=== PATIENT | male | born 1935 | race Caucasian/White ===

== ENCOUNTER 2017-08-04 02:30 | Observation (INO) | payer MEDICARE, BC ==
--- NOTE | 2017-08-04 02:48 | EDM.PDOC ---
ED HPI GENERAL MEDICAL PROBLEM - General Chief Complaint: General Stated Complaint: right arm numb, headache Time Seen by Provider: 08/04/17 02:25 Source of Information: Reports: Patient History Limitations: Reports: No Limitations - History of Present Illness INITIAL COMMENTS - FREE TEXT/NARRATIVE: Paramjit is an 81 yo male who presents to the ER via [facility] with concerns of right arm numbness and a headache. He states he went to bed feeling well around 10 this evening. He was woke up to having a headache, difficulty focusing with his right eye and the numbness in his right arm. Initially tried getting out of bed but felt he wasn't able to walk and would be unsteady on his feet. After being able to ambulate he took 2 aspirin. Admits the numbness in his right arm has subsided and his headache on arrival is very dull. Was concerned of having a stroke. Currently has a cardiac event monitor on for known history of bradycardia. He currently takes Methyldopa for high blood pressure, which was started in [place] with his primary care provider. Otherwise, denies any other medications. He denies any prior history of stroke or TIA's. Past medical history is otherwise grossly benign. Onset: Today, Sudden Duration: Improving, Resolved Prior to Arrival Location: Reports: Head, Upper Extremity, Right Associated Symptoms: Reports: Headaches. 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 - Related Data Allergies Allergy/AdvReac Type Severity Reaction Status Date / Time ciprofloxacin [From Cipro] Allergy Cannot Verified 08/04/17 02:28 Remember Home Meds: Home Meds Methyldopa 1 tab PO BID 08/04/17 [History] Past Medical History Cardiovascular History: Reports: Hypertension, Other (See Below) (bradycardia) Respiratory History: Reports: None Gastrointestinal History: Reports: None Genitourinary History: Reports: None Neurological History: Reports: None Psychiatric History: Reports: None Oncologic (Cancer) History: Reports: Prostate - Past Surgical History HEENT Surgical History: Reports: None Cardiovascular Surgical History: Reports: None Respiratory Surgical History: Reports: None GI Surgical History: Reports: None Male Surgical History: Reports: TURP-Transurethral Resection of Prostate Endocrine Surgical History: Reports: None Neurological Surgical History: Reports: None Musculoskeletal Surgical History: Reports: Shoulder Surgery Oncologic Surgical History: Reports: None Social & Family History - Tobacco Use Smoking Status *Q: Never Smoker - Caffeine Use Caffeine Use: Reports: Coffee - Alcohol Use Alcohol Use History: No - Living Situation & Occupation Living situation: Reports: , Alone Occupation: Retired ED ROS GENERAL - Review of Systems Review Of Systems: See Below Constitutional: Denies: Fever, Chills, Weakness HEENT: Reports: Vision Change (initial difficulty focusing with right eye, resolved ) Respiratory: Reports: No Symptoms Cardiovascular: Reports: Blood Pressure Problem. Denies: Chest Pain, Palpitations, Syncope GI/Abdominal: Reports: No Symptoms : Reports: No Symptoms Musculoskeletal: Reports: No Symptoms Neurological: Reports: Numbness (right upper extremity, resolved prior to arrival), Difficulty Walking (at onset, resolved prior to arrival). Denies: Syncope, Trouble Speaking, Change in Speech Psychiatric: Reports: No Symptoms ED EXAM, GENERAL - Physical Exam Exam: See Below Exam Limited By: No Limitations General Appearance: Alert, WD/WN, No Apparent Distress Eye Exam: Bilateral Eye: EOMI, Normal Inspection, PERRL Ears: Normal External Exam, Normal Canal, Hearing Grossly Normal, Normal TMs Nose: Normal Inspection, Normal Mucosa, No Blood Throat/Mouth: Normal Inspection, Normal Lips, Normal Gums, Normal Oropharynx, Normal Voice, No Airway Compromise Head: Atraumatic, Normocephalic Neck: Normal Inspection, Supple Respiratory/Chest: No Respiratory Distress, Lungs Clear, Normal Breath Sounds, No Accessory Muscle Use Cardiovascular: Normal Peripheral Pulses, No Edema, No Murmur, Bradycardia GI/Abdominal: Normal Bowel Sounds, Soft, Non-Tender, No Organomegaly, No Distention Extremities: Normal Inspection, Normal Range of Motion, Normal Capillary Refill Neurological: Alert, Oriented, CN II-XII Intact, Normal Cognition, No Motor/ Sensory Deficits Psychiatric: Normal Affect, Normal Mood Skin Exam: Warm, Dry, Intact, Normal Color, No Rash EKG INTERPRETATION EKG Date: 08/04/17 Rhythm: Other (Sinus bradycardia with 1st degree AV block) Rate (Beats/Min): 47 Comparison: No Change Course - Vital Signs Last Recorded V/S: Last Vital Signs Temp 96.3 F 08/04/17 02:30 Pulse 50 L 08/04/17 02:30 Resp 16 08/04/17 02:30 BP 144/53 H 08/04/17 02:30 Pulse Ox 95 08/04/17 02:30 - Orders/Labs/Meds Orders: Active Orders 24 hr Category Date Time Status Chest 2V [CR] Stat Exams 08/04/17 02:20 Ordered Head wo Cont [CT] Stat Exams 08/04/17 02:20 Ordered Labs: Laboratory Tests 08/04/17 08/04/17 08/04/17 Range/Units 02:45 02:45 02:45 WBC 5.5 (5.0-10.0) 10^3/uL RBC 3.89 L (4.50-6.00) 10^6/uL Hgb 11.9 L (14.0-18.0) g/dL Hct 36.9 L (40.0-54.0) % MCV 94.9 H (82.0-94.0) fL MCH 30.6 (27.0-32.0) pg MCHC 32.2 L (33.0-38.0) g/dL RDW Coeff of Carmen 12.9 (11.0-15.0) % Plt Count 122 L (150-400) 10^3/uL Neut % (Auto) 77.9 (35-85) % Lymph % (Auto) 13.7 (10-55) % Arroyo % (Auto) 6.9 (0-16) % Eos % (Auto) 1.3 (0-5) % Baso % (Auto) 0.2 (0-3) % Neut # (Auto) 4.27 (1.80-7.00) 10^3/uL Lymph # (Auto) 0.75 L (1.00-4.80) 10^3/uL Arroyo # (Auto) 0.38 (0.00-0.80) 10^3/uL Eos # (Auto) 0.07 (0.00-0.45) 10^3/uL Baso # (Auto) 0.01 10^3/uL PT 10.5 (9.7-12.3) SEC INR 1.01 (0.92-1.18) APTT 27.4 (23.2-32.3) SEC Sodium 142 (136-145) mEq/L Potassium 4.1 (3.5-5.0) mEq/L Chloride 107 H (98-106) mEq/L Carbon Dioxide 24 (21-32) mmol/L BUN 22 H (7-18) mg/dL Creatinine 1.3 (0.7-1.3) mg/dL Est Cr Clr Drug Dosing 40.90 mL/min Estimated GFR (MDRD) 53 L (>=60) mL/min Glucose 119 H (75-99) mg/dL Calcium 8.5 (8.4-10.1) mg/dL Lactate Dehydrogenase 172 (100-190) U/L Creatine Kinase 158 (35-232) U/L Troponin I < 0.017 (0.00-0.06) ng/mL - Re-Assessments/Exams Free Text/Narrative Re-Assessment/Exam: 08/04/17 02:55 Upon arrival, Paramjit was asymptomatic. He had no deficits noted. Stroke scale screening was a score of 0. Departure - Departure Time of Disposition: 03:19 Disposition: Refer to Observation Clinical Impression: TIA (transient ischemic attack) Qualifiers: Transient cerebral ischemia type: unspecified Qualified Code(s): G45.9 - Transient cerebral ischemic attack, unspecified - Discharge Information Forms: ED Department Discharge - Problem List & Annotations (1) TIA (transient ischemic attack) SNOMED Code(s): 283583291 Code(s): G45.9 - TRANSIENT CEREBRAL ISCHEMIC ATTACK, UNSPECIFIED Status: Acute Current Visit: Yes Qualifiers: Transient cerebral ischemia type: unspecified Qualified Code(s): G45.9 - Transient cerebral ischemic attack, unspecified - Problem List Review Problem List Initiated/Reviewed/Updated: Yes - My Orders Last 24 Hours: My Active Orders 08/04/17 02:20 Chest 2V [CR] Stat Head wo Cont [CT] Stat - Assessment/Plan Admission H&P: Please use this note as an admission H&P Last 24 Hours: My Active Orders 08/04/17 02:20 Chest 2V [CR] Stat Head wo Cont [CT] Stat Plan: Discussed findings with Paramjit and his son. Laboratory work was stable. CT of the brain showed no acute abnormalities pending radiology report. Chest x-ray stable. Will admit to Dr. Aguirre's services under observation. Carotid duplex, fasting lipid, urinalysis to be done in am. Paramjit and family are both in agreement.
[2017-08-04 03:07] LABS: CHLORIDE,CL 107 mEq/L (98-106); SODIUM,NA 142 mEq/L (136-145)
[2017-08-04] MEDS ORDERED: Acetaminophen 500 MG Tab PO ONE (03:20)
[2017-08-04] MEDS ORDERED: Sodium Chloride 0.9% 10 ML Syringe FLUSH PRN (04:00)
[2017-08-04] MEDS ORDERED: Docusate Sodium 100 MG Cap PO PRN (04:00)
[2017-08-04] MEDS ORDERED: Acetaminophen 325 MG Tab PO PRN (04:00)
[2017-08-04] MEDS: Enoxaparin 40 MG/0.4 ML Syringe SUBCUT SCH (04:37)
[2017-08-04] MEDS: Aspirin 81 MG Tab.Chew PO SCH (07:41)
[2017-08-04] MEDS ORDERED: Iopamidol 755 Mg/ML 100 ML Bottle IVPUSH ONE (08:33)
--- NOTE | 2017-08-04 10:01 | PN ---
DATE: 08/04/2017 S: Paramjit Song came in with the TIA last night. Apparently, his right upper extremity went numb 3 times. O: GENERAL: A little bit of a garbled speech. NECK: Supple. CHEST: Clear. CARDIAC: Regular grade 2 murmur over the aortic area. NEUROLOGIC: Stable and then a little bit of expressive aphasia. P: Echo, CTA head and neck and I will go from there. CAT scan of the head looks okay MOIRA/ROBERT /[id number]
[2017-08-05] MEDS: Enoxaparin 40 MG/0.4 ML Syringe SUBCUT SCH (04:07)
[2017-08-05] MEDS: Aspirin 81 MG Tab.Chew PO SCH (11:28)
--- NOTE | 2017-08-05 12:31 | PCM.DCSUM1 ---
Discharge Summary - Hospital Course HPI Initial Comments: Paramjit is a pleasant 81 year old male who was admitted to the hospital from the ED with questionable TIA. NIH 0 at time of presentation. He presented to the ED after waking up from sleep in the middle of the night with some dizziness and headache. He also reported that his right arm was also numb. He reported he tried to get out of bed but was too weak and dizzy to do so, so he called EMS to be brought in. Upon arrival to the ED, he was asymptomatic. Head CT was negative. Patient had no neurologic deficits throughout hospital stay. Dr. Aguirre did opt to proceed with CTA of head and neck. 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 Patient has been asymptomatic. No neurological issues. CTA of the neck normal. Patient has been recently doctoring for syncopal episodes. He recently had Holter monitor on which showed predominately NSR with intermittent 1st degree AV block. Bradycardia was present for 44% of the tracing, with a minimum heart rate of 34. Diary entries coincided with sinus, sinus bradycardia, or sinus with delay (1.5 seconds). EKG on arrival to ED did show sinus bradycardia with 1st degree AV block. Patient was referred to cardiology, who then recommended a 30-day event monitor until appointment date was set. Patient currently has 30- day event monitor on. Fax was received from reading tag press operator recommended patient see cardiology given bradycardia, pauses and patients symptoms. Patient was currently waiting for appointment with cardiology. Final event monitor read is not available, but they did report his HR got as low as 29 and patient was very symptomatic. Patient also recently had a transthoracic echocardiogram. Echo reveals low normal left ventricular systolic function, EF of 50%, mild aortic regurgitation, normal right ventricular systolic function, and mild tricuspid regurgitation. Throughout hospital stay, patient's HR at night has been low 30's. During the day, he has been running in the 50's. He has not had any syncopal episodes, but does report occasional episodes of lightheadedness that resolve after about 30 seconds. He reports these have been occurring for some time now, at least a couple times a week. VSS at time of discharge. Patient does have event monitor on. Consulted with [facility] re: patient's ongoing symptomatic bradycardia. Initially spoke with Dr. Turner (dot compliance specialist), who then recommended we admit to hospitalist. Discussed patient's case with Dr. Elizabeth ( hospitalist), who accepted patient for transfer. Patient will be discharged and transferred via EMS to [facility]. Patient will be admitted to room 662. This was discussed with both patient and patient's son, who are agreeable to transfer. Risks and benefits of transfer were discussed with patient. Risks of transfer include worsening of condition, , and MVA enroute. Benefits of transfer include higher level of care and cardiology, neurology, and electrophysiology consultation. Risks of nontransfer include worsening of condition, , and nonspecialized care or intervention. Benefits of nontransfer include familiar environment and close proximity to home. Patient voiced understanding of risks and benefits and was agreeable with transfer via BLS. - Discharge Data Discharge Date: 08/05/17 Discharge Disposition: DC/Tfer to [facility] 02 Condition: Good - Discharge Diagnosis/Problem(s) (1) Hypertension SNOMED Code(s): 70051577 ICD Code: I10 - ESSENTIAL (PRIMARY) HYPERTENSION Status: Acute Current Visit: Yes Qualifiers: Hypertension type: essential hypertension Qualified Code(s): I10 - Essential (primary) hypertension (2) Symptomatic sinus bradycardia SNOMED Code(s): 828559280 ICD Code: R00.1 - BRADYCARDIA, UNSPECIFIED Status: Acute Priority: High Current Visit: Yes (3) TIA (transient ischemic attack) SNOMED Code(s): 793497621 ICD Code: G45.9 - TRANSIENT CEREBRAL ISCHEMIC ATTACK, UNSPECIFIED Status: Acute Current Visit: Yes Problem Details: 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 Qualifiers: Transient cerebral ischemia type: unspecified Qualified Code(s): G45.9 - Transient cerebral ischemic attack, unspecified - Patient Instructions Diet: Heart Healthy Diet Activity: As Tolerated Driving: Do Not Drive - Discharge Plan Home Medications: Home Meds Methyldopa 1 tab PO BID 08/04/17 [History] Forms: ED Department Discharge Referrals: Provider,Unknown [Ordering Only Provider] - - Discharge Summary/Plan Comment DC Time >30 min.: Yes (60 minutes spent in care and coordination of d/c transfer ) - General Info Date of Service: 08/05/17 Admission Dx/Problem (Free Text: TIA Symptomatic Bradycardia Subjective Update: Patient reports he has been feeling well since admission. He has not had any neurologic changes. Has had some episodes of dizziness/lightheadedness when his pulse is low at night. Nursing reports pulse as low as 31 last night. BP has been stable. Patient has no other complaints. Functional Status: Reports: Pain Controlled, Tolerating Diet, Ambulating, Urinating. Denies: New Symptoms - Review of Systems General: Reports: No Symptoms. Denies: Fever, Weakness, Fatigue, Chills HEENT: Reports: No Symptoms Pulmonary: Reports: No Symptoms. Denies: Shortness of Breath, Cough, Sputum, Wheezing Cardiovascular: Reports: Lightheadedness. Denies: Chest Pain, Palpitations, Dyspnea on Exertion Gastrointestinal: Reports: No Symptoms. Denies: Abdominal Pain, Diarrhea, Nausea, Vomiting Genitourinary: Reports: No Symptoms Musculoskeletal: Reports: No Symptoms Skin: Reports: No Symptoms. Denies: Cyanosis, Diaphoresis Neurological: Reports: Dizziness. Denies: Confusion, Headache, Numbness, Paresthesia, Pre-Existing Deficit, Seizure, Syncope, Tingling, Tremors, Trouble Speaking, Difficulty Walking, Weakness, Change in Speech, Gait Disturbance Psychiatric: Reports: No Symptoms - Patient Data Vitals - Most Recent: Last Vital Signs Temp 97.3 F 08/05/17 12:00 Pulse 76 08/05/17 12:00 Resp 19 08/05/17 12:00 BP 129/50 L 08/05/17 12:00 Pulse Ox 96 08/05/17 12:00 Weight - Most Recent: 196 lb 12.8 oz Med Orders - Current: Current Medications Acetaminophen (Tylenol) 650 mg PO Q4H PRN PRN Reason: Pain (Mild 1-3)/fever Aspirin (Aspirin) 81 mg PO WITHBREAKFAST [facility] Last Admin: 08/05/17 11:28 Dose: Not Given Docusate Sodium (Colace) 100 mg PO BID PRN PRN Reason: Constipation Enoxaparin Sodium (Lovenox) 40 mg SUBCUT Q24H [facility] Last Admin: 08/05/17 04:07 Dose: 40 mg Methyldopa (Methyldopa) 500 mg PO BID [facility] Last Admin: 08/05/17 07:15 Dose: 500 mg Sodium Chloride (Saline Flush) 10 ml FLUSH ASDIRECTED PRN PRN Reason: Keep Vein Open Discontinued Medications Acetaminophen (Tylenol Extra Strength) 1,000 mg PO ONETIME ONE Stop: 08/04/17 03:21 Last Admin: 08/04/17 03:25 Dose: 1,000 mg Iopamidol (Isovue-370 (76%)) 100 ml IVPUSH ONETIME ONE Stop: 08/04/17 08:34 Last Admin: 08/04/17 11:06 Dose: 100 ml - Exam Quality Assessment: Reports: DVT Prophylaxis General: Reports: Alert, Oriented, No Acute Distress Neck: Reports: Supple Lungs: Reports: Clear to Auscultation, Normal Respiratory Effort Cardiovascular: Reports: Regular Rate, Regular Rhythm, Murmurs GI/Abdominal Exam: Normal Bowel Sounds, Soft, Non-Tender, No Organomegaly, No Distention, No Abnormal Bruit, No Mass, Pelvis Stable Back Exam: Reports: Normal Inspection, Full Range of Motion Extremities: Normal Inspection, Normal Range of Motion, Non-Tender, No Pedal Edema, Normal Capillary Refill Skin: Reports: Warm, Dry, Intact Neurological: Reports: No New Focal Deficit, Normal Gait, Normal Speech, Strength Equal Bilateral, Sensation Intact, Cranial Nerves Intact Psy/Mental Status: Reports: Alert, Normal Affect, Normal Mood
== END 2017-08-05 12:35 ==
LOC: CC.ED 02:30 → CC.MS 03:25 → UNDOADMOB 03:40 → CC.MS 03:40
PROVIDERS: ADMIT Physician Assistant Medical; ATTEND General Practice
DX: G45.9 Transient cerebral ischemic attack, unspecified (principal); I44.0 Atrioventricular block, first degree; I10 Essential (primary) hypertension; Z88.1 Allergy status to other antibiotic agents
CPT/HCPCS: 36415; 70450; 70496; 70498; 71046; 80048; 80061; 81001; 82550; 83615; 83735; 83880; 84443; 84484; 85025; 85610; 85651; 85730; 93005; 96372; 99285; A9270-GY; G0378; J1650; Q9967

== ENCOUNTER 2018-03-15 16:09 | Emergency (ER) | payer MEDICARE, BC ==
--- NOTE | 2018-03-15 16:39 | EDM.PDOC ---
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) - Related Data Allergies Allergy/AdvReac Type Severity Reaction Status Date / Time ciprofloxacin [From Cipro] Allergy Cannot Verified 03/15/18 16:14 Remember Home Meds: Home Meds Aspirin [Halfprin] 81 mg PO DAILY 03/15/18 [History] Carvedilol 3.125 mg PO BID 03/15/18 [History] Lisinopril 20 mg PO DAILY 03/15/18 [History] atorvaSTATin Calcium [Atorvastatin Calcium] 40 mg PO BEDTIME 03/15/18 [History] Past Medical History HEENT History: Reports: None Cardiovascular History: Reports: Hypertension, Pacemaker, Other (See Below) Respiratory History: Reports: None Gastrointestinal History: Reports: None Genitourinary History: Reports: None Other Genitourinary History: prostrate cancer Neurological History: Reports: None Psychiatric History: Reports: None Oncologic (Cancer) History: Reports: Prostate - Past Surgical History HEENT Surgical History: Reports: None Cardiovascular Surgical History: Reports: None Respiratory Surgical History: Reports: None GI Surgical History: Reports: None Male Surgical History: Reports: TURP-Transurethral Resection of Prostate Endocrine Surgical History: Reports: None Neurological Surgical History: Reports: None Musculoskeletal Surgical History: Reports: Shoulder Surgery Oncologic Surgical History: Reports: None Social & Family History - Family History Cardiac: Reports: Hypertension - Tobacco Use Smoking Status *Q: Never Smoker - Caffeine Use Caffeine Use: Reports: Coffee - Recreational Drug Use Recreational Drug Use: No - Living Situation & Occupation Living situation: Reports: , Alone Occupation: Retired ED ROS GENERAL - Review of Systems Review Of Systems: See Below Constitutional: Reports: No Symptoms HEENT: Reports: Other (swelling to nose with abrasions ) Respiratory: Reports: No Symptoms. Denies: Shortness of Breath Cardiovascular: Reports: No Symptoms. Denies: Chest Pain Endocrine: Reports: No Symptoms GI/Abdominal: Reports: No Symptoms. Denies: Abdominal Pain, Nausea, Vomiting : Reports: No Symptoms Musculoskeletal: Reports: No Symptoms. Denies: Neck Pain, Back Pain Skin: Reports: Other (abrasions to face) Neurological: Reports: Headache, Other (positive LOC) Psychiatric: Reports: No Symptoms ED EXAM, GENERAL - Physical Exam Exam: See Below Exam Limited By: No Limitations General Appearance: Alert, WD/WN, No Apparent Distress Eye Exam: Bilateral Eye: EOMI, PERRL Ears: Normal External Exam, Normal Canal, Hearing Grossly Normal, Normal TMs Ear Exam: Bilateral Ear: Auricle Normal, Canal Normal, TM normal Nose: Normal Mucosa, No Blood, Nasal Tenderness, Nasal Deformity, Nasal Swelling Throat/Mouth: Normal Inspection, Normal Lips, Normal Oropharynx, Normal Voice, No Airway Compromise Head: Normocephalic, Other (facial abrasions) Neck: Normal Inspection, Supple, Non-Tender, Full Range of Motion Respiratory/Chest: No Respiratory Distress, Lungs Clear, Normal Breath Sounds, No Accessory Muscle Use, Chest Non-Tender Cardiovascular: Normal Peripheral Pulses, Regular Rate, Rhythm, No Edema Peripheral Pulses: 2+: Radial (L), Radial (R) GI/Abdominal: Soft, Non-Tender, No Distention Back Exam: Normal Inspection, Full Range of Motion Extremities: Normal Inspection, Normal Range of Motion, Non-Tender, Normal Capillary Refill Neurological: Alert, Oriented, CN II-XII Intact, Normal Cognition, Normal Gait, No Motor/Sensory Deficits Psychiatric: Normal Affect, Normal Mood Skin Exam: Warm, Dry, Normal Color, No Rash, Other (abrasions to face). No: Intact Course - Vital Signs Last Recorded V/S: Last Vital Signs Temp 35.8 C 03/15/18 16:10 Pulse 71 03/15/18 16:10 Resp 16 03/15/18 16:10 BP 138/59 L 03/15/18 16:10 Pulse Ox 100 03/15/18 16:10 - Orders/Labs/Meds Orders: Active Orders 24 hr Category Date Time Status Cervical Spine wo Cont [CT] Stat Exams 03/15/18 16:34 Ordered Head wo Cont [CT] Stat Exams 03/15/18 16:34 Ordered Maxillofacial w/o CM [Max Facial Sinus wo Cont] [CT] Exams 03/15/18 16:34 Ordered Stat Meds: Medications Discontinued Medications Generic Name Dose Route Start Last Admin Trade Name Chidi PRN Reason Stop Dose Admin Neomycin/Polymyxin/Bacitracin 1 each 03/15/18 16:52 03/15/18 17:01 Triple Antibiotic Oint TOP 03/15/18 16:53 1 each ONETIME ONE Administration - Radiology Interpretation CT Results Date: 03/15/18 (ct head/neck/face have no acute pathology, see report for details) Departure - Departure Time of Disposition: 18:29 Disposition: Home, Self-Care 01 Condition: Good Clinical Impression: Fall, Closed head injury, Facial contusion - Discharge Information *PRESCRIPTION DRUG MONITORING PROGRAM REVIEWED*: Not Applicable *COPY OF PRESCRIPTION DRUG MONITORING REPORT IN PATIENT MILY: Not Applicable Instructions: Contusion, Gexm-th-[id number], Head Injury, Adult, [id number] Forms: ED Department Discharge Additional Instructions: rest increase fluids apply a thin coat of neosporin to your abrasions 3 x a day alternate tylenol and motrin as needed for pain return to the ED as needed - Problem List & Annotations (1) Closed head injury SNOMED Code(s): 056605489784 Code(s): S09.90XA - UNSPECIFIED INJURY OF HEAD, INITIAL ENCOUNTER Status: Acute Priority: Medium Current Visit: Yes Qualifiers: Encounter type: initial encounter Qualified Code(s): S09.90XA - Unspecified injury of head, initial encounter (2) Facial contusion SNOMED Code(s): 482524574 Code(s): S00.83XA - CONTUSION OF OTHER PART OF HEAD, INITIAL ENCOUNTER Status: Acute Priority: Medium Current Visit: Yes Qualifiers: Encounter type: initial encounter Qualified Code(s): S00.83XA - Contusion of other part of head, initial encounter (3) Fall SNOMED Code(s): 8362101, 365137437 Code(s): W19.XXXA - UNSPECIFIED FALL, INITIAL ENCOUNTER Status: Acute Priority: Medium Current Visit: Yes Qualifiers: Encounter type: initial encounter Qualified Code(s): W19.XXXA - Unspecified fall, initial encounter - Problem List Review Problem List Initiated/Reviewed/Updated: Yes - My Orders Last 24 Hours: My Active Orders 03/15/18 16:34 Cervical Spine wo Cont [CT] Stat Head wo Cont [CT] Stat Maxillofacial w/o CM [Max Facial Sinus wo Cont] [CT] Stat - Assessment/Plan Last 24 Hours: My Active Orders 03/15/18 16:34 Cervical Spine wo Cont [CT] Stat Head wo Cont [CT] Stat Maxillofacial w/o CM [Max Facial Sinus wo Cont] [CT] Stat Plan: will dc, f/u prn, see dc instructions
[2018-03-15] MEDS ORDERED: Bacitracin/Neomycin/Polymyxin B Oint 0.9 GM U/D Packet TOP ONE (16:52)
== END 2018-03-15 18:35 | disposition home or self-care (01) ==
LOC: CC.ED 16:09
DX: S09.90XA Unspecified injury of head, initial encounter (principal); S00.83XA Contusion of other part of head, initial encounter; I10 Essential (primary) hypertension; Z88.1 Allergy status to other antibiotic agents; W19.XXXA Unspecified fall, initial encounter
CPT/HCPCS: 70450; 70486; 72125; 99283; 99284

== ENCOUNTER 2018-11-05 18:26 | Emergency (ER) | payer MEDICARE, BC ==
--- NOTE | 2018-11-05 18:48 | EDM.PDOC ---
ED HPI GENERAL MEDICAL PROBLEM - General Chief Complaint: General Stated Complaint: "Pacemaker not working" Time Seen by Provider: 11/05/18 18:40 Source of Information: Reports: Patient History Limitations: Reports: No Limitations - History of Present Illness INITIAL COMMENTS - FREE TEXT/NARRATIVE: in with c/o dizziness off and on x several days, "I do not think my pacemaker is working", no sob, no palpitations or irregular heart beat, no ENT sx, no unusual neck/back pain or stiffness, no cough, no fever or chills. Onset: Gradual Duration: Day(s): Severity: Mild Improves with: Reports: None Worsens with: Reports: None Associated Symptoms: Reports: No Other Symptoms. 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) (none) - Related Data Allergies Allergy/AdvReac Type Severity Reaction Status Date / Time ciprofloxacin [From Cipro] Allergy Cannot Verified 11/05/18 18:26 Remember Home Meds: Home Meds Aspirin [Halfprin] 325 mg PO DAILY 03/15/18 [History] Carvedilol 3.125 mg PO BID 03/15/18 [History] Lisinopril 20 mg PO DAILY 03/15/18 [History] atorvaSTATin Calcium [Atorvastatin Calcium] 40 mg PO BEDTIME 03/15/18 [History] Past Medical History HEENT History: Reports: None Cardiovascular History: Reports: Hypertension, Pacemaker, Other (See Below) Respiratory History: Reports: None Gastrointestinal History: Reports: None Genitourinary History: Reports: None Other Genitourinary History: prostrate cancer Neurological History: Reports: None Psychiatric History: Reports: None Oncologic (Cancer) History: Reports: Prostate - Past Surgical History HEENT Surgical History: Reports: None Cardiovascular Surgical History: Reports: None Respiratory Surgical History: Reports: None GI Surgical History: Reports: None Male Surgical History: Reports: TURP-Transurethral Resection of Prostate Endocrine Surgical History: Reports: None Neurological Surgical History: Reports: None Musculoskeletal Surgical History: Reports: Shoulder Surgery Oncologic Surgical History: Reports: None Social & Family History - Family History Cardiac: Reports: Hypertension - Tobacco Use Smoking Status *Q: Never Smoker - Caffeine Use Caffeine Use: Reports: Coffee - Recreational Drug Use Recreational Drug Use: No - Living Situation & Occupation Living situation: Reports: , Alone Occupation: Retired ED ROS GENERAL - Review of Systems Review Of Systems: See Below Constitutional: Reports: No Symptoms. Denies: Fever, Chills, Weakness HEENT: Reports: No Symptoms Respiratory: Reports: No Symptoms. Denies: Shortness of Breath Cardiovascular: Reports: No Symptoms. Denies: Chest Pain Endocrine: Reports: No Symptoms GI/Abdominal: Reports: No Symptoms. Denies: Abdominal Pain, Nausea, Vomiting Musculoskeletal: Reports: No Symptoms. Denies: Neck Pain, Back Pain Skin: Reports: No Symptoms. Denies: Pallor, Diaphoresis, Bruising, Erythema Neurological: Reports: Dizziness. Denies: Confusion, Headache, Syncope, Trouble Speaking, Weakness, Change in Speech, Gait Disturbance Psychiatric: Reports: No Symptoms ED EXAM, GENERAL - Physical Exam Exam: See Below Exam Limited By: No Limitations General Appearance: Alert, WD/WN, No Apparent Distress Ears: Normal External Exam, Normal Canal, Normal TMs Ear Exam: Bilateral Ear: Auricle Normal, Canal Normal, TM normal Nose: Normal Inspection, Normal Mucosa Throat/Mouth: Normal Inspection, Normal Lips, Normal Oropharynx, Normal Voice, No Airway Compromise Head: Atraumatic, Normocephalic Neck: Normal Inspection, Supple, Non-Tender, Full Range of Motion Respiratory/Chest: No Respiratory Distress, Lungs Clear, Normal Breath Sounds, No Accessory Muscle Use, Chest Non-Tender Cardiovascular: Normal Peripheral Pulses, Regular Rate, Rhythm, No Edema, No Murmur, Systolic Murmur Peripheral Pulses: 2+: Radial (L), Radial (R) GI/Abdominal: Normal Bowel Sounds, Soft, Non-Tender, No Distention Back Exam: Normal Inspection, Full Range of Motion Extremities: Normal Inspection, Normal Range of Motion, Non-Tender, No Pedal Edema, Normal Capillary Refill Neurological: Alert, Oriented, Normal Cognition, Normal Gait, No Motor/Sensory Deficits Psychiatric: Normal Affect Skin Exam: Warm, Dry, Intact, Normal Color Course - Vital Signs Text/Narrative:: the pt was evaluated in the ED, cbc, and general chemistries are essi neg, has some chronic renal insufficiency and anemia, EKG shows a paced rhythm with a vent rate of 60, The pt advised the pacer is set on 60 and was told they may need to increase the rate. The pacer company is being called by the nurse to discuss the pts disposition. 1819 The pacer [employer] is going to have the tech call back, the pts son is going to get his pacer box so the pacer can be interrogated and increased if necessary. 2109 I spoke to the [employer] who evaluated the pacer through this morning and advised it is working normally and there has not been any problems. He advised that it would be best to have the pt f/u with the solar pv installer this week and discuss possibly making changes to the rate at that point. I did discuss this with the pt and he agrees with this disposition, I advised him to change positions slowly and call the solar pv installer on early wednesday am. Last Recorded V/S: Last Vital Signs Temp 35.8 C 11/05/18 20:42 Pulse 66 11/05/18 20:42 Resp 16 11/05/18 20:42 BP 144/82 H 11/05/18 20:42 Pulse Ox 100 11/05/18 20:42 - Orders/Labs/Meds Orders: Active Orders 24 hr Category Date Time Status Chest 2V [CR] Stat Exams 11/05/18 18:42 Taken Labs: Laboratory Tests 11/05/18 11/05/18 Range/Units 18:42 18:42 WBC 3.9 L (5.0-10.0) 10^3/uL RBC 3.43 L (4.50-6.00) 10^6/uL Hgb 10.6 L (14.0-18.0) g/dL Hct 32.8 L (40.0-54.0) % MCV 95.6 H (82.0-94.0) fL MCH 30.9 (27.0-32.0) pg MCHC 32.3 L (33.0-38.0) g/dL RDW Coeff of Carmen 13.0 (11.0-15.0) % Plt Count 124 L (150-400) 10^3/uL Neut % (Auto) 60.4 (35-85) % Lymph % (Auto) 27.9 (10-55) % Sabine % (Auto) 7.9 (0-16) % Eos % (Auto) 3.3 (0-5) % Baso % (Auto) 0.5 (0-3) % Neut # (Auto) 2.36 (1.80-7.00) 10^3/uL Lymph # (Auto) 1.09 (1.00-4.80) 10^3/uL Sabine # (Auto) 0.31 (0.00-0.80) 10^3/uL Eos # (Auto) 0.13 (0.00-0.45) 10^3/uL Baso # (Auto) 0.02 10^3/uL Sodium 142 (136-145) mEq/L Potassium 4.2 (3.5-5.0) mEq/L Chloride 108 H (98-106) mEq/L Carbon Dioxide 25 (21-32) mmol/L BUN 22 H (7-18) mg/dL Creatinine 1.5 H (0.7-1.3) mg/dL Est Cr Clr Drug Dosing 33.60 mL/min Estimated GFR (MDRD) 45 L (>=60) mL/min Glucose 140 H D (75-99) mg/dL Calcium 8.7 (8.4-10.1) mg/dL Total Bilirubin 0.4 (0.0-1.0) mg/dL AST 19 (15-37) U/L ALT 18 (12-78) U/L Alkaline Phosphatase 85 (46-116) U/L Troponin I < 0.017 (0.00-0.06) ng/mL Total Protein 6.7 (6.4-8.2) g/dL Albumin 3.5 (3.4-5.0) g/dL Departure - Departure Time of Disposition: 21:15 Disposition: Home, Self-Care 01 Condition: Good Clinical Impression: Dizziness - Discharge Information *PRESCRIPTION DRUG MONITORING PROGRAM REVIEWED*: Not Applicable *COPY OF PRESCRIPTION DRUG MONITORING REPORT IN PATIENT MILY: Not Applicable Instructions: Dizziness, [id number] Referrals: PCP,None [Primary Care Provider] - Forms: ED Department Discharge Additional Instructions: change positions slowly follow up with your solar pv installer this week, call early wednesday am for an appointment time for further evaluation and treatment return to the ED sooner if worse or problems - Problem List & Annotations (1) Dizziness SNOMED Code(s): 182537433, 620891316 Code(s): R42 - DIZZINESS AND GIDDINESS Status: Acute Priority: Medium Current Visit: Yes - Problem List Review Problem List Initiated/Reviewed/Updated: Yes - My Orders Last 24 Hours: My Active Orders 11/05/18 18:42 Chest 2V [CR] Stat - Assessment/Plan Last 24 Hours: My Active Orders 11/05/18 18:42 Chest 2V [CR] Stat Assessment:: as above
[2018-11-05 19:19] LABS: CHLORIDE,CL 108 mEq/L (98-106); SODIUM,NA 142 mEq/L (136-145)
== END 2018-11-05 21:30 | disposition home or self-care (01) ==
LOC: CC.ED 18:26
DX: R42 Dizziness and giddiness (principal); I10 Essential (primary) hypertension; Z85.46 Personal history of malignant neoplasm of prostate; Z88.1 Allergy status to other antibiotic agents; Z79.82 Long term (current) use of aspirin; Z79.899 Other long term (current) drug therapy
CPT/HCPCS: 36415; 71046; 80053; 84484; 85025; 93005; 99284; 99284-25

== ENCOUNTER 2019-01-26 12:10 | Emergency (ER) | payer OTHER, MEDICARE, BC ==
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
[2019-01-26] MEDS ORDERED: Diphtheria,Pertussis(Acell),Tetanus Vaccine 0.5 ML Syringe IM ONE (12:57)
== END 2019-01-26 13:40 | disposition home or self-care (01) ==
LOC: CC.ED 12:10
DX: M79.652 Pain in left thigh (principal); I10 Essential (primary) hypertension; Z88.1 Allergy status to other antibiotic agents; Z79.82 Long term (current) use of aspirin; Z79.899 Other long term (current) drug therapy; V64.5XXA Driver of heavy transport vehicle injured in collision with heavy transport vehicle or bus in traffic accident, initial encounter; Y92.410 Unspecified street and highway as the place of occurrence of the external cause
CPT/HCPCS: 36415; 71045; 72170; 80053; 82150; 85025; 85610; 90471; 90715; 93005; 99284-25

== ENCOUNTER 2019-09-25 08:31 | Observation (INO) | payer MEDICARE, BC ==
[2019-09-25 09:00] LABS: PTT,PARTIAL THROMBOPLSTIN TIME 23.6 SEC (23.2-32.3)
[2019-09-25 09:03] LABS: CHLORIDE,CL 109 mEq/L (98-106); SODIUM,NA 144 mEq/L (136-145)
[2019-09-25] MEDS ORDERED: Sodium Chloride 0.9% 1,000 ML IV SCH (09:45)
[2019-09-25] MEDS ORDERED: Acetaminophen 325 MG Tab PO PRN (11:08)
[2019-09-25] MEDS: amLODIPine 10 MG Tab PO SCH (11:44)
[2019-09-25] MEDS: Enoxaparin 40 MG/0.4 ML Syringe SUBCUT SCH (11:45)
--- NOTE | 2019-09-25 12:47 | EDM.PDOC ---
ED HPI GENERAL MEDICAL PROBLEM - General Chief Complaint: Neuro Symptoms/Deficits Stated Complaint: R side weakness Time Seen by Provider: 09/25/19 08:53 Source of Information: Reports: Patient History Limitations: Reports: No Limitations - History of Present Illness INITIAL COMMENTS - FREE TEXT/NARRATIVE: Juan is an 83 yo male who is brought into the ED via wheelchair, accompanied by his daugher. He states he woke up around 0200 hrs this morning, which is normal for him. Admits to feeling weak and couldn't get up and states his right arm felt weak that lasted about 3 hrs. He admits after that he was able to get up and symptoms seem to subside. Has history of mini strokes and daughter wanted him to get checked out. Denies any present weakness to his right arm. He adm its he had prior strokes before getting a pacemaker. 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 - Related Data Allergies Allergy/AdvReac Type Severity Reaction Status Date / Time ciprofloxacin [From Cipro] Allergy Cannot Verified 09/25/19 08:37 Remember Home Meds: Home Meds Lisinopril 20 mg PO DAILY 03/15/18 [History] atorvaSTATin Calcium [Atorvastatin Calcium] 40 mg PO BEDTIME 03/15/18 [History] carvediloL [Carvedilol] 3.125 mg PO BID 03/15/18 [History] Aspirin 325 mg PO DAILY 09/25/19 [History] Past Medical History HEENT History: Reports: None Cardiovascular History: Reports: Hypertension, Pacemaker, Other (See Below) Respiratory History: Reports: None Gastrointestinal History: Reports: None Genitourinary History: Reports: None Other Genitourinary History: prostrate cancer Neurological History: Reports: CVA Psychiatric History: Reports: None Oncologic (Cancer) History: Reports: Prostate - Past Surgical History HEENT Surgical History: Reports: None Cardiovascular Surgical History: Reports: Pacer Respiratory Surgical History: Reports: None GI Surgical History: Reports: None Male Surgical History: Reports: TURP-Transurethral Resection of Prostate Endocrine Surgical History: Reports: None Neurological Surgical History: Reports: None Musculoskeletal Surgical History: Reports: Shoulder Surgery Oncologic Surgical History: Reports: None Social & Family History - Family History Cardiac: Reports: Hypertension - Tobacco Use Smoking Status *Q: Never Smoker - Caffeine Use Caffeine Use: Reports: Coffee - Recreational Drug Use Recreational Drug Use: No - Living Situation & Occupation Living situation: Reports: , Alone Occupation: Retired ED ROS GENERAL - Review of Systems Review Of Systems: See Below Constitutional: Reports: Weakness (subsided). Denies: Fever, Chills HEENT: Reports: No Symptoms, Other Respiratory: Reports: No Symptoms Cardiovascular: Reports: No Symptoms. Denies: Chest Pain, Blood Pressure Problem, Dyspnea on Exertion, Lightheadedness, Palpitations GI/Abdominal: Reports: No Symptoms : Reports: No Symptoms Musculoskeletal: Reports: No Symptoms Skin: Reports: No Symptoms Neurological: Reports: Numbness, Paresthesia, Weakness. Denies: Confusion, Dizziness, Headache, Seizure, Syncope, Tingling, Trouble Speaking, Difficulty Walking Psychiatric: Reports: No Symptoms Hematologic/Lymphatic: Reports: No Symptoms ED EXAM, NEURO - Physical Exam Exam: See Below Exam Limited By: No Limitations General Appearance: Alert, WD/WN, No Apparent Distress Eye Exam: Bilateral Eye: EOMI, Normal Inspection, PERRL Ears: Normal External Exam, Normal Canal, Hearing Grossly Normal, Normal TMs Nose: Normal Inspection, Normal Mucosa, No Blood Throat/Mouth: Normal Inspection, Normal Lips, Normal Gums, Normal Oropharynx, No Airway Compromise Head Exam: Atraumatic, Normocephalic Neck: Normal Inspection, Supple Respiratory/Chest: No Respiratory Distress, Lungs Clear, Normal Breath Sounds, No Accessory Muscle Use Cardiovascular: Regular Rate, Rhythm, No Edema GI/Abdominal: Normal Bowel Sounds, Soft, Non-Tender, No Organomegaly, No Mass Neurological: Alert, Normal Mood/Affect, CN II-XII Intact, Normal Gait, No Motor/Sensory Deficits, Oriented x 3 Extremities: Normal Inspection, No Pedal Edema, Normal Capillary Refill Psychiatric: Normal Affect, Normal Mood Skin Exam: Warm, Dry, Intact, Normal Color, No Rash Course - Vital Signs Last Recorded V/S: Last Vital Signs Temp 98 F 09/25/19 12:19 Pulse 65 09/25/19 12:19 Resp 16 09/25/19 12:19 BP 153/61 H 09/25/19 12:19 Pulse Ox 100 09/25/19 12:19 - Orders/Labs/Meds Orders: Active Orders 24 hr Category Date Time Status Head wo Cont [CT] Routine Exams 09/25/19 Taken Sodium Chloride 0.9% [Normal Saline] 1,000 ml Med 09/25/19 09:45 Active IV ASDIRECTED Medication Orders Acetaminophen (Tylenol) 650 mg PO Q4H PRN PRN Reason: Pain (Mild 1-3)/fever Amlodipine Besylate (Norvasc) 5 mg PO DAILY [facility] Last Admin: 09/25/19 11:44 Dose: 5 mg Documented by: ARNIE Aspirin (Aspirin) 325 mg PO WITHBREAKFAST [facility] Atorvastatin Calcium (Lipitor) 40 mg PO BEDTIME [facility] Carvedilol (Coreg) 3.125 mg PO BID [facility] Enoxaparin Sodium (Lovenox) 40 mg SUBCUT DAILY [facility] Last Admin: 09/25/19 11:45 Dose: 40 mg Documented by: ARNIE Sodium Chloride (Normal Saline) 1,000 mls @ 150 mls/hr IV ASDIRECTED [facility] Last Admin: 09/25/19 09:48 Dose: 150 mls/hr Documented by: JIAN Lisinopril (Prinivil) 20 mg PO DAILY [facility] Labs: Laboratory Tests 09/25/19 09/25/19 09/25/19 Range/Units 08:42 08:42 08:42 WBC 5.2 (5.0-10.0) 10^3/uL RBC 3.67 L (4.50-6.00) 10^6/uL Hgb 11.3 L (14.0-18.0) g/dL Hct 35.3 L (40.0-54.0) % MCV 96.2 H (82.0-94.0) fL MCH 30.8 (27.0-32.0) pg MCHC 32.0 L (33.0-38.0) g/dL RDW Coeff of Carmen 12.7 (11.0-15.0) % Plt Count 118 L (150-400) 10^3/uL Neut % (Auto) 76.8 (35-85) % Lymph % (Auto) 14.9 (10-55) % [place] % (Auto) 5.4 (0-16) % Eos % (Auto) 2.7 (0-5) % Baso % (Auto) 0.2 (0-3) % Neut # (Auto) 3.98 (1.80-7.00) 10^3/uL Lymph # (Auto) 0.77 L (1.00-4.80) 10^3/uL Henderson # (Auto) 0.28 (0.00-0.80) 10^3/uL Eos # (Auto) 0.14 (0.00-0.45) 10^3/uL Baso # (Auto) 0.01 10^3/uL PT 10.9 (9.7-12.3) SEC INR 1.08 (0.92-1.18) APTT 23.6 (23.2-32.3) SEC Sodium 144 (136-145) mEq/L Potassium 4.0 (3.5-5.0) mEq/L Chloride 109 H (98-106) mEq/L Carbon Dioxide 26 (21-32) mmol/L BUN 23 H (7-18) mg/dL Creatinine 1.3 (0.7-1.3) mg/dL Est Cr Clr Drug Dosing TNP Estimated GFR (MDRD) 53 L (>=60) mL/min Glucose 107 H (75-99) mg/dL Calcium 8.4 (8.4-10.1) mg/dL Creatine Kinase 137 (35-232) U/L Troponin I < 0.017 (0.00-0.06) ng/mL Urine Color (YELLOW) Urine Appearance (CLEAR) Urine pH (4.5-8.0) Ur Specific [place]lass (1.003-1.020) Urine Protein (NEGATIVE) mg/dL Urine Glucose (UA) (NEGATIVE) mg/dL Urine Ketones (NEGATIVE) mg/dL Urine Occult Blood (NEGATIVE) Urine Nitrite (NEGATIVE) Urine Bilirubin (NEGATIVE) Urine Urobilinogen (0.2-1.0) EU/dL Ur Leukocyte Esterase (NEGATIVE) 09/25/19 Range/Units 08:42 WBC (5.0-10.0) 10^3/uL RBC (4.50-6.00) 10^6/uL Hgb (14.0-18.0) g/dL Hct (40.0-54.0) % MCV (82.0-94.0) fL MCH (27.0-32.0) pg MCHC (33.0-38.0) g/dL RDW Coeff of Carmen (11.0-15.0) % Plt Count (150-400) 10^3/uL Neut % (Auto) (35-85) % Lymph % (Auto) (10-55) % Henderson % (Auto) (0-16) % Eos % (Auto) (0-5) % Baso % (Auto) (0-3) % Neut # (Auto) (1.80-7.00) 10^3/uL Lymph # (Auto) (1.00-4.80) 10^3/uL Henderson # (Auto) (0.00-0.80) 10^3/uL Eos # (Auto) (0.00-0.45) 10^3/uL Baso # (Auto) 10^3/uL PT (9.7-12.3) SEC INR (0.92-1.18) APTT (23.2-32.3) SEC Sodium (136-145) mEq/L Potassium (3.5-5.0) mEq/L Chloride (98-106) mEq/L Carbon Dioxide (21-32) mmol/L BUN (7-18) mg/dL Creatinine (0.7-1.3) mg/dL Est Cr Clr Drug Dosing Estimated GFR (MDRD) (>=60) mL/min Glucose (75-99) mg/dL Calcium (8.4-10.1) mg/dL Creatine Kinase (35-232) U/L Troponin I (0.00-0.06) ng/mL Urine Color Light yellow (YELLOW) Urine Appearance Clear (CLEAR) Urine pH 6.0 (4.5-8.0) Ur Specific Douglass <= 1.005 (1.003-1.020) Urine Protein Negative (NEGATIVE) mg/dL Urine Glucose (UA) Negative (NEGATIVE) mg/dL Urine Ketones Negative (NEGATIVE) mg/dL Urine Occult Blood Negative (NEGATIVE) Urine Nitrite Negative (NEGATIVE) Urine Bilirubin Negative (NEGATIVE) Urine Urobilinogen 0.2 (0.2-1.0) EU/dL Ur Leukocyte Esterase Negative (NEGATIVE) Meds: Medications Generic Name Dose Route Start Last Admin Trade Name Freq PRN Reason Stop Dose Admin Acetaminophen 650 mg 09/25/19 11:08 Tylenol PO Q4H PRN Pain (Mild 1-3)/fever Amlodipine Besylate 5 mg 09/25/19 10:30 09/25/19 11:44 Norvasc PO 5 mg DAILY [facility] Administration Aspirin 325 mg 07/07/20 08:00 Aspirin PO WITHBREAKFAST [facility] Atorvastatin Calcium 40 mg 09/25/19 20:00 Lipitor PO BEDTIME [facility] Carvedilol 3.125 mg 09/25/19 20:00 Coreg PO BID [facility] Enoxaparin Sodium 40 mg 09/25/19 11:08 09/25/19 11:45 Lovenox SUBCUT 40 mg DAILY [facility] Administration Sodium Chloride 1,000 mls @ 150 mls/hr 09/25/19 09:45 09/25/19 09:48 Normal Saline IV 150 mls/hr ASDIRECTED [facility] Administration Lisinopril 20 mg 09/26/19 08:00 Prinivil PO DAILY [facility] - Radiology Interpretation Free Text/Narrative:: CT head for any acute intracranial abnormalities. Subacute findings noted with concerns of prior remote infarction. Departure - Departure Time of Disposition: 12:49 Disposition: Refer to Observation Clinical Impression: TIA (transient ischemic attack) - Discharge Information Sepsis Event Note (ED) - Evaluation Sepsis Screening Result: No Definite Risk - Focused Exam Vital Signs: Vital Signs Temp Pulse Resp BP Pulse Ox 09/25/19 09:45 98 F 63 15 181/73 H 99 09/25/19 09:30 98 F 63 16 173/72 H 98 09/25/19 09:15 98 F 78 16 167/78 H 99 09/25/19 09:00 98 F 68 15 180/80 H 100 09/25/19 08:45 98.3 F 69 15 174/73 H 97 09/25/19 08:31 98.2 F 55 L 16 175/50 H 98 - Problem List & Annotations (1) Hypertension SNOMED Code(s): 17496953 Code(s): I10 - ESSENTIAL (PRIMARY) HYPERTENSION Status: Chronic Current Visit: No Qualifiers: Hypertension type: essential hypertension Qualified Code(s): I10 - Essential (primary) hypertension (2) TIA (transient ischemic attack) SNOMED Code(s): 597430896 Code(s): G45.9 - TRANSIENT CEREBRAL ISCHEMIC ATTACK, UNSPECIFIED Status: Acute Current Visit: Yes - My Orders Last 24 Hours: My Active Orders 09/25/19 Head wo Cont [CT] Routine 09/25/19 09:45 Sodium Chloride 0.9% [Normal Saline] 1,000 ml IV ASDIRECTED - Assessment/Plan Admission H&P: Please use this note as an admission H&P Last 24 Hours: My Active Orders 09/25/19 Head wo Cont [CT] Routine 09/25/19 09:45 Sodium Chloride 0.9% [Normal Saline] 1,000 ml IV ASDIRECTED Plan: Labs overall are stable. Will admit for observation. Echocardiogram and carotid duplex to be done. Will closely monitor with telemetry and neurochecks. Will initiate ASA 325mg daily. Dr. Felipe consulted with admission and is in agreement. Patient transferred to floor in satisfactory condition.
[2019-09-25] MEDS: Carvedilol 3.125 MG Tab PO SCH (19:38)
[2019-09-25] MEDS ORDERED: atorvaSTATin 20 MG Tab PO SCH (20:00)
[2019-09-26] MEDS: amLODIPine 10 MG Tab PO SCH (07:53)
[2019-09-26] MEDS: Carvedilol 3.125 MG Tab PO SCH (07:53)
[2019-09-26] MEDS: Enoxaparin 40 MG/0.4 ML Syringe SUBCUT SCH (07:54)
[2019-09-26] MEDS ORDERED: Lisinopril 20 MG Tab PO SCH (08:00)
[2019-09-26] MEDS ORDERED: Aspirin 325 MG Tab PO SCH (08:00)
--- NOTE | 2019-09-26 18:12 | PCM.DCSUM1 ---
Discharge Summary - Hospital Course Free Text/Narrative:: Patient presented to ER with concerns of 3 hour history of right arm weakness. Had awoke at 0200 like his usual but felt weak. States right arm was especially noticeable. He reports the symptoms lasted about 3 hours but then subsided. 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 Was not started on any new meds since the pacemaker for this except a daily aspirin. CT scan of his head in the ER was negative. Lab work stable. Admitted for neuro monitoring, obtain carotid ultrasound and echocardiogram. Diagnosis: Stroke: No Modified [place] Scale: No Symptoms at All Modified [place] Scale Score: 0 - Discharge Data Discharge Date: 09/26/19 Discharge Disposition: Home, Self-Care 01 Condition: Good - Referral to Home Health Primary Care Physician: PCP None - Discharge Diagnosis/Problem(s) (1) TIA (transient ischemic attack) SNOMED Code(s): 432633633 ICD Code: G45.9 - TRANSIENT CEREBRAL ISCHEMIC ATTACK, UNSPECIFIED Status: Acute Priority: High - Patient Summary/Data Complications: none Hospital Course: Patient doing well. Neuro checks have remained normal throughout stay. Up and ambulating without difficulty. Appetite is good. Carotid ultrasound and echo have been done, awaiting results. Discussion with patient and daughter held in regards to starting Plavix to prevent any further TIA/CVA. Opted to proceed with Plavix. Will follow up in clinic next week for all results. - Patient Instructions Diet: Usual Diet as Tolerated Activity: As Tolerated Other/Special Instructions: MRI of the brain on Wednesday - Discharge Plan *PRESCRIPTION DRUG MONITORING PROGRAM REVIEWED*: No *COPY OF PRESCRIPTION DRUG MONITORING REPORT IN PATIENT MILY: No Prescriptions/Med Rec: amLODIPine Besylate [Norvasc] 5 mg PO DAILY #30 tablet Clopidogrel Bisulfate [Plavix] 75 mg PO DAILY #30 tablet Home Medications: Home Meds Lisinopril 20 mg PO DAILY 03/15/18 [History] atorvaSTATin Calcium [Atorvastatin Calcium] 40 mg PO BEDTIME 03/15/18 [History] carvediloL [Carvedilol] 3.125 mg PO BID 03/15/18 [History] Aspirin 325 mg PO DAILY 09/25/19 [History] Clopidogrel Bisulfate [Plavix] 75 mg PO DAILY #30 tablet 09/26/19 [Rx] amLODIPine Besylate [Norvasc] 5 mg PO DAILY #30 tablet 09/26/19 [Rx] Forms: ED Department Discharge Referrals: Mariela Niño PA [ED Midlevel Provider] - (Hospital follow up in one week) - Discharge Summary/Plan Comment DC Time >30 min.: No - General Info Date of Service: 09/26/19 Admission Dx/Problem (Free Text: TIA Functional Status: Reports: Pain Controlled, Tolerating Diet, Ambulating - Review of Systems General: Denies: Weakness, Fatigue, Malaise HEENT: Reports: No Symptoms Pulmonary: Denies: Shortness of Breath, Cough Cardiovascular: Denies: Chest Pain, Edema, Lightheadedness Gastrointestinal: Denies: Abdominal Pain, Nausea, Vomiting Genitourinary: Reports: No Symptoms Musculoskeletal: Reports: No Symptoms Skin: Reports: No Symptoms Neurological: Denies: Weakness - Patient Data Vitals - Most Recent: Last Vital Signs Temp 98.7 F 09/26/19 07:44 Pulse 64 09/26/19 07:44 Resp 16 09/26/19 07:44 BP 167/64 H 09/26/19 07:53 Pulse Ox 98 09/26/19 07:44 Weight - Most Recent: 180 lb 9.6 oz Med Orders - Current: Current Medications Discontinued Medications Acetaminophen (Tylenol) 650 mg PO Q4H PRN PRN Reason: Pain (Mild 1-3)/fever Amlodipine Besylate (Norvasc) 5 mg PO DAILY [facility] Last Admin: 09/26/19 07:53 Dose: 5 mg Documented by: Aspirin (Aspirin) 325 mg PO WITHBREAKFAST [facility] Last Admin: 09/26/19 07:52 Dose: Not Given Documented by: Atorvastatin Calcium (Lipitor) 40 mg PO BEDTIME [facility] Last Admin: 09/25/19 19:38 Dose: Not Given Documented by: Carvedilol (Coreg) 3.125 mg PO BID [facility] Last Admin: 09/26/19 07:53 Dose: Not Given Documented by: Enoxaparin Sodium (Lovenox) 40 mg SUBCUT DAILY [facility] Last Admin: 09/26/19 07:54 Dose: 40 mg Documented by: Sodium Chloride (Normal Saline) 1,000 mls @ 150 mls/hr IV ASDIRECTED [facility] Last Admin: 09/25/19 09:48 Dose: 150 mls/hr Documented by: Lisinopril (Prinivil) 20 mg PO DAILY [facility] Last Admin: 09/26/19 07:53 Dose: Not Given Documented by: - Exam General: Reports: Alert, Oriented HEENT: Reports: Mucous Membr. Moist/[place] Neck: Reports: Supple Lungs: Reports: Clear to Auscultation, Normal Respiratory Effort Cardiovascular: Reports: Regular Rate, Regular Rhythm GI/Abdominal Exam: Normal Bowel Sounds, Soft, Non-Tender Extremities: Normal Inspection, No Pedal Edema Skin: Reports: Warm, Dry Neurological: Reports: No New Focal Deficit, Normal Gait, Normal Speech, Normal Tone, Strength Equal Bilateral
== END 2019-09-26 09:33 | disposition home or self-care (01) ==
LOC: CC.ED 08:31 → CC.MS 10:14
PROVIDERS: ADMIT Physician Assistant Medical; ATTEND Family Medicine
DX: G45.9 Transient cerebral ischemic attack, unspecified (principal); I10 Essential (primary) hypertension; Z86.73 Personal history of transient ischemic attack (TIA), and cerebral infarction without residual deficits; Z88.1 Allergy status to other antibiotic agents; Z79.899 Other long term (current) drug therapy; Z79.82 Long term (current) use of aspirin
CPT/HCPCS: 36415; 70450; 80048; 81003; 82550; 84484; 85025; 85610; 85730; 93005; 93010; 93306; 93880; 96360; 96361; 96372; 99217; 99220; 99285-25; A9270-GY; G0378; J1650; J7030

== ENCOUNTER 2022-03-21 12:50 | Emergency (ER) | payer MEDICARE, BC ==
[2022-03-21] MEDS ORDERED: Take Home: Cephalexin 500 MG Cap, 6 Cap Pack PO ONE (14:41)
== END 2022-03-21 15:12 | disposition home or self-care (01) ==
LOC: CC.ED 12:50
DX: L03.011 Cellulitis of right finger (principal); L02.511 Cutaneous abscess of right hand; E78.00 Pure hypercholesterolemia, unspecified; I10 Essential (primary) hypertension; Z86.73 Personal history of transient ischemic attack (TIA), and cerebral infarction without residual deficits; Z95.0 Presence of cardiac pacemaker; Z88.1 Allergy status to other antibiotic agents; Z79.899 Other long term (current) drug therapy; Z79.02 Long term (current) use of antithrombotics/antiplatelets
CPT/HCPCS: 73140-F9; 99283; A9270-GY

== ENCOUNTER 2022-04-04 17:11 | Emergency (ER) | payer MEDICARE, BC ==
[2022-04-04] MEDS ORDERED: Lidocaine 1% 5 ML VIAL INJECT ONE (17:19)
[2022-04-04] MEDS ORDERED: Acetaminophen 500 MG Tab PO ONE (17:22)
[2022-04-04] MEDS ORDERED: Diphtheria,Pertussis(Acell),Tetanus Vaccine 0.5 ML Syringe IM ONE (17:28)
[2022-04-04] MEDS ORDERED: Bacitracin/Neomycin/Polymyxin B Oint 0.9 GM U/D Packet TOP ONE (17:52)
== END 2022-04-04 18:35 | disposition home or self-care (01) ==
LOC: CC.ED 17:11
DX: S01.111A Laceration without foreign body of right eyelid and periocular area, initial encounter (principal); E78.00 Pure hypercholesterolemia, unspecified; I10 Essential (primary) hypertension; Z86.73 Personal history of transient ischemic attack (TIA), and cerebral infarction without residual deficits; Z88.1 Allergy status to other antibiotic agents; Z79.899 Other long term (current) drug therapy; Z23 Encounter for immunization; W22.09XA Striking against other stationary object, initial encounter
CPT/HCPCS: 12011; 90471; 90715; 99282-25; 99283; A9270-GY

== ENCOUNTER 2023-02-15 13:07 | Inpatient (IN) | payer MEDICARE, BC ==
[2023-02-15 13:27] LABS: BASOPHILS ABSOLUTE AUTO 0.04 10^3/uL (0.00-0.50); BASOPHILS PERCENT AUTO 0.5 % (0-1); EOSINOPHILS ABSOLUTE AUTO 0.05 10^3/uL (0.00-1.50); EOSINOPHILS PERCENT AUTO 0.7 % (0-6); HEMOGLOBIN 8.7 g/dL (14.0-18.0); IMMATURE GRAN ABSOLUTE AUTO 0.01 10^3/uL (0.00-0.49); IMMATURE GRAN PERCENT AUTO 0.1 % (0.0-4.9); LYMPHOCYTES ABSOLUTE AUTO 0.78 10^3/uL (0.60-5.00); LYMPHOCYTES PERCENT AUTO 10.6 % (24-44); MEAN CORPUSCULAR HEMOGLOBIN 33.3 pg (27.0-32.0); MEAN CORPUSCULAR HGB CONC 31.1 g/dL (32.0-36.0); MEAN CORPUSCULAR VOLUME 107.3 fL (83.0-97.0); MONOCYTES ABSOLUTE AUTO 0.46 10^3/uL (0.00-1.50); MONOCYTES PERCENT AUTO 6.3 % (0-10); NEUTROPHILS ABSOLUTE AUTO 5.99 x10^3/uL (1.80-8.00); NEUTROPHILS PERCENT AUTO 81.8 % (41-71); PLATELET COUNT,PLT 131 10^3/uL (150-400); RED BLOOD CELL COUNT 2.61 x10^6/uL (4.50-6.00); WHITE BLOOD CELL COUNT,WBC 7.3 10^3/uL (4.0-11.0)
[2023-02-15 13:39] LABS: APPEARANCE,URINE CLEAR (CLEAR); BILIRUBIN,URINE NEGATIVE (NEGATIVE); COLOR,URINE YELLOW (YELLOW); GLUCOSE,URINE NEGATIVE (NEGATIVE); KETONES,URINE NEGATIVE (NEGATIVE); LEUKOCYTE ESTERASE,URINE TRACE (NEGATIVE); NITRITE,URINE NEGATIVE (NEGATIVE); OCCULT BLOOD,URINE TRACE-INTACT (NEGATIVE); PH,URINE 5.5 (4.5-8.0); PROTEIN,URINE NEGATIVE (NEGATIVE); UROBILINOGEN,URINE 0.2 EU/dL (0.2-1.0)
[2023-02-15 13:50] LABS: ALANINE AMINOTRANSFERASE,ALT 20 U/L (12-78); ALBUMIN 3.6 g/dL (3.4-5.0); ALKALINE PHOSPHATASE 67 U/L (46-116); ASPARTATE AMNIOTRANSFERASE,AST 17 U/L (15-37); BACTERIA,URINE OCCASIONAL /HPF (NOT SEEN); BILIRUBIN TOTAL 0.3 mg/dL (0.0-1.0); BLOOD UREA NITROGEN,BUN 68 mg/dL (7-18); CALCIUM 8.7 mg/dL (8.4-10.1); CARBON DIOXIDE,CO2 17 mmol/L (21-32); CHLORIDE,CL 107 mEq/L (98-106); GLUCOSE RANDOM 136 mg/dL (75-99); PRO B-TYPE NATRIUR PEPT,BNPPRO 479 pg/mL (0-1000); PROTEIN TOTAL,TP 6.7 g/dL (6.4-8.2); RBC,URINE 0-5 /HPF (0-5); SODIUM,NA 136 mEq/L (136-145); SQUAMOUS EPITHELIAL CELLS,UR FEW /HPF (NOT SEEN); WBC,URINE 0-5 /HPF (0-5)
[2023-02-15 13:54] LABS: C-REACTIVE PROTEIN < 0.30 mg/dL (<=0.30); ESTIMATED GFR 14 mL/min (>=60); POTASSIUM,K 7.2 mEq/L (3.5-5.0)
[2023-02-15] MEDS ORDERED: Sodium Chloride 0.9% 1,000 ML IV STA (14:44)
[2023-02-15] MEDS ORDERED: 50% Dextrose in Water 50 ML Syringe IVPUSH ONE ×2 (14:45→18:34)
[2023-02-15] MEDS ORDERED: Glucagon,Human Recombinant 1 MG Vial IM PRN ×2 (14:45→18:34)
[2023-02-15] MEDS ORDERED: Insulin Regular, Human 100 Units/ML 3 ML Vial IV ONE ×2 (14:45→18:34)
[2023-02-15] MEDS ORDERED: 50% Dextrose in Water 50 ML Syringe IVPUSH PRN ×2 (14:45→18:34)
[2023-02-15] MEDS ORDERED: Furosemide 20 MG/2 ML VIAL IVPUSH ONE (14:45)
[2023-02-15] MEDS ORDERED: Calcium Gluconate 1 GM in Sodium Chloride 0.9% 100 ML IV STA (14:45)
[2023-02-15] MEDS ORDERED: Albuterol 0.083% 2.5 MG/3 ML Neb Soln NEB ONE ×2 (14:45→18:45)
[2023-02-15] MEDS ORDERED: Acetaminophen 325 MG Tab PO PRN (15:02)
[2023-02-15] MEDS ORDERED: Docusate Sodium 100 MG Cap PO PRN (15:02)
[2023-02-15] MEDS ORDERED: Polyethylene Glycol 3350 Powder 17 GM Packet PO PRN (15:02)
[2023-02-15] MEDS: Carvedilol 3.125 MG Tab PO SCH (17:17)
[2023-02-15] MEDS: Sodium Chloride 0.9% 1,000 ML IV SCH (17:17)
[2023-02-15 18:20] LABS: CALCIUM 8.7 mg/dL (8.4-10.1); CREATININE 3.8 mg/dL (0.7-1.3); EST CRCL DRUG DOSING (CG) 11.68 mL/min
[2023-02-15 18:21] LABS: POTASSIUM,K 7.1 mEq/L (3.5-5.0)
[2023-02-15] MEDS ORDERED: Sodium Chloride 0.9% 1,000 ML IV ONE (18:32)
[2023-02-15] MEDS: Melatonin 3 MG Tab PO SCH (19:22)
[2023-02-15] MEDS: atorvaSTATin 20 MG Tab PO SCH (19:23)
[2023-02-16] MEDS: Sodium Chloride 0.9% 1,000 ML IV SCH ×2 (06:24→19:31)
[2023-02-16 07:53] LABS: BASOPHILS ABSOLUTE AUTO 0.03 10^3/uL (0.00-0.50); BASOPHILS PERCENT AUTO 0.5 % (0-1); EOSINOPHILS ABSOLUTE AUTO 0.07 10^3/uL (0.00-1.50); EOSINOPHILS PERCENT AUTO 1.1 % (0-6); HEMATOCRIT 24.7 % (42.0-52.0); HEMOGLOBIN 7.7 g/dL (14.0-18.0); IMMATURE GRAN ABSOLUTE AUTO 0.02 10^3/uL (0.00-0.49); IMMATURE GRAN PERCENT AUTO 0.3 % (0.0-4.9); LYMPHOCYTES ABSOLUTE AUTO 0.73 10^3/uL (0.60-5.00); LYMPHOCYTES PERCENT AUTO 11.1 % (24-44); MEAN CORPUSCULAR HGB CONC 31.2 g/dL (32.0-36.0); MONOCYTES ABSOLUTE AUTO 0.44 10^3/uL (0.00-1.50); MONOCYTES PERCENT AUTO 6.7 % (0-10); NEUTROPHILS PERCENT AUTO 80.3 % (41-71); PLATELET COUNT,PLT 105 10^3/uL (150-400); RED BLOOD CELL COUNT 2.33 x10^6/uL (4.50-6.00); WHITE BLOOD CELL COUNT,WBC 6.6 10^3/uL (4.0-11.0)
[2023-02-16] MEDS: amLODIPine 10 MG Tab PO SCH (07:58)
[2023-02-16] MEDS: Ferrous Sulfate 324 MG Tab.EC PO SCH (07:58)
[2023-02-16] MEDS: Tamsulosin 0.4 MG Cap.ER PO SCH (07:58)
[2023-02-16] MEDS: Folic Acid 1 MG Tab PO SCH (07:58)
[2023-02-16] MEDS: Carvedilol 3.125 MG Tab PO SCH ×2 (07:58→17:15)
[2023-02-16] MEDS ORDERED: Enoxaparin 30 MG/0.3 ML Syringe SUBCUT SCH (08:00)
[2023-02-16] MEDS ORDERED: Clopidogrel 75 MG Tab PO SCH (08:00)
[2023-02-16] MEDS ORDERED: Lisinopril 20 MG Tab PO SCH (08:00)
[2023-02-16 08:02] LABS: EST CRCL DRUG DOSING (CG) 13.88 mL/min
[2023-02-16 08:04] LABS: POTASSIUM,K 7.2 mEq/L (3.5-5.0)
[2023-02-16 08:05] LABS: CREATININE 3.2 mg/dL (0.7-1.3)
[2023-02-16 09:01] LABS: CALCIUM 8.2 mg/dL (8.4-10.1)
[2023-02-16] MEDS ORDERED: Albuterol 0.083% 2.5 MG/3 ML Neb Soln NEB ONE (09:03)
[2023-02-16] MEDS ORDERED: Furosemide 40 MG/4 ML VIAL IVPUSH ONE (09:03)
[2023-02-16] MEDS ORDERED: Glucagon,Human Recombinant 1 MG Vial IM PRN (09:03)
[2023-02-16] MEDS ORDERED: 50% Dextrose in Water 50 ML Syringe IVPUSH ONE (09:03)
[2023-02-16] MEDS ORDERED: 50% Dextrose in Water 50 ML Syringe IVPUSH PRN (09:03)
[2023-02-16] MEDS ORDERED: Insulin Regular, Human 100 Units/ML 3 ML Vial IV ONE (09:03)
[2023-02-16] MEDS ORDERED: Sodium Chloride 0.9% 1,000 ML IV STA (09:03)
[2023-02-16] MEDS ORDERED: Sodium Zirconium Cyclosilicate 10 GM Packet PO STA (09:05)
[2023-02-16] MEDS ORDERED: Sodium Bicarbonate 100 MEQ in Dextrose 5% in Water 1,000 ML IV ONE ×4 (11:08→12:00)
[2023-02-16] MEDS: Furosemide 40 MG/4 ML VIAL IVPUSH SCH (16:20)
[2023-02-16] MEDS: Sodium Zirconium Cyclosilicate 10 GM Packet PO SCH (16:20)
[2023-02-16 16:54] LABS: CALCIUM 8.3 mg/dL (8.4-10.1); EST CRCL DRUG DOSING (CG) 15.31 mL/min; MAGNESIUM 2.2 mg/dL (1.8-2.4); POTASSIUM,K 5.9 mEq/L (3.5-5.0)
[2023-02-16 16:55] LABS: CREATININE 2.9 mg/dL (0.7-1.3)
[2023-02-16] MEDS: Melatonin 3 MG Tab PO SCH (19:31)
[2023-02-16] MEDS: atorvaSTATin 20 MG Tab PO SCH (19:31)
[2023-02-17] MEDS ORDERED: Melatonin 3 MG Tab PO PRN (06:17)
[2023-02-17] MEDS: Sodium Zirconium Cyclosilicate 10 GM Packet PO SCH ×2 (06:28→09:31)
[2023-02-17] MEDS: Ferrous Sulfate 324 MG Tab.EC PO SCH (07:41)
[2023-02-17] MEDS: Folic Acid 1 MG Tab PO SCH (07:41)
[2023-02-17] MEDS: amLODIPine 10 MG Tab PO SCH (07:42)
[2023-02-17] MEDS: Tamsulosin 0.4 MG Cap.ER PO SCH (07:42)
[2023-02-17] MEDS: Heparin Sodium 5,000 Units/ML Vial SUBCUT SCH ×2 (07:43→16:19)
[2023-02-17 07:44] LABS: CALCIUM 8.2 mg/dL (8.4-10.1); EST CRCL DRUG DOSING (CG) 17.08 mL/min; POTASSIUM,K 5.5 mEq/L (3.5-5.0)
[2023-02-17 07:47] LABS: CREATININE 2.6 mg/dL (0.7-1.3)
[2023-02-17] MEDS: Carvedilol 3.125 MG Tab PO SCH ×2 (07:58→16:32)
[2023-02-17] MEDS: Furosemide 40 MG/4 ML VIAL IVPUSH SCH ×2 (07:58→16:18)
[2023-02-17 08:06] LABS: BASOPHILS ABSOLUTE AUTO 0.05 10^3/uL (0.00-0.50); BASOPHILS PERCENT AUTO 0.9 % (0-1); EOSINOPHILS ABSOLUTE AUTO 0.08 10^3/uL (0.00-1.50); EOSINOPHILS PERCENT AUTO 1.4 % (0-6); HEMATOCRIT 23.9 % (42.0-52.0); HEMOGLOBIN 7.5 g/dL (14.0-18.0); IMMATURE GRAN ABSOLUTE AUTO 0.01 10^3/uL (0.00-0.49); IMMATURE GRAN PERCENT AUTO 0.2 % (0.0-4.9); LYMPHOCYTES ABSOLUTE AUTO 0.78 10^3/uL (0.60-5.00); LYMPHOCYTES PERCENT AUTO 13.4 % (24-44); MEAN CORPUSCULAR HEMOGLOBIN 32.9 pg (27.0-32.0); MEAN CORPUSCULAR HGB CONC 31.4 g/dL (32.0-36.0); MEAN CORPUSCULAR VOLUME 104.8 fL (83.0-97.0); MONOCYTES ABSOLUTE AUTO 0.43 10^3/uL (0.00-1.50); MONOCYTES PERCENT AUTO 7.4 % (0-10); NEUTROPHILS ABSOLUTE AUTO 4.48 x10^3/uL (1.80-8.00); NEUTROPHILS PERCENT AUTO 76.7 % (41-71); PLATELET COUNT,PLT 112 10^3/uL (150-400); RED BLOOD CELL COUNT 2.28 x10^6/uL (4.50-6.00); WHITE BLOOD CELL COUNT,WBC 5.8 10^3/uL (4.0-11.0)
[2023-02-17] MEDS: Sodium Chloride 0.9% 1,000 ML IV SCH (17:21)
[2023-02-17] MEDS: atorvaSTATin 20 MG Tab PO SCH (19:53)
[2023-02-18] MEDS: Heparin Sodium 5,000 Units/ML Vial SUBCUT SCH ×2 (00:15→08:13)
[2023-02-18 08:09] VITALS: BP 119/49; PULSE 73
[2023-02-18] MEDS: Tamsulosin 0.4 MG Cap.ER PO SCH (08:12)
[2023-02-18] MEDS: Carvedilol 3.125 MG Tab PO SCH (08:12)
[2023-02-18] MEDS: Folic Acid 1 MG Tab PO SCH (08:12)
[2023-02-18] MEDS: amLODIPine 10 MG Tab PO SCH (08:12)
[2023-02-18] MEDS: Ferrous Sulfate 324 MG Tab.EC PO SCH (08:13)
[2023-02-18] MEDS: Furosemide 40 MG/4 ML VIAL IVPUSH SCH (08:13)
[2023-02-18 09:47] LABS: BASOPHILS ABSOLUTE AUTO 0.03 10^3/uL (0.00-0.50); BASOPHILS PERCENT AUTO 0.6 % (0-1); EOSINOPHILS ABSOLUTE AUTO 0.09 10^3/uL (0.00-1.50); EOSINOPHILS PERCENT AUTO 1.9 % (0-6); HEMATOCRIT 26.9 % (42.0-52.0); HEMOGLOBIN 8.2 g/dL (14.0-18.0); IMMATURE GRAN ABSOLUTE AUTO 0.01 10^3/uL (0.00-0.49); IMMATURE GRAN PERCENT AUTO 0.2 % (0.0-4.9); LYMPHOCYTES ABSOLUTE AUTO 0.74 10^3/uL (0.60-5.00); LYMPHOCYTES PERCENT AUTO 15.7 % (24-44); MEAN CORPUSCULAR HEMOGLOBIN 32.8 pg (27.0-32.0); MEAN CORPUSCULAR HGB CONC 30.5 g/dL (32.0-36.0); MEAN CORPUSCULAR VOLUME 107.6 fL (83.0-97.0); MONOCYTES ABSOLUTE AUTO 0.25 10^3/uL (0.00-1.50); MONOCYTES PERCENT AUTO 5.3 % (0-10); NEUTROPHILS PERCENT AUTO 76.3 % (41-71); PLATELET COUNT,PLT 113 10^3/uL (150-400); WHITE BLOOD CELL COUNT,WBC 4.7 10^3/uL (4.0-11.0)
[2023-02-18 09:54] LABS: CALCIUM 8.3 mg/dL (8.4-10.1); CREATININE 2.1 mg/dL (0.7-1.3); EST CRCL DRUG DOSING (CG) 21.14 mL/min; MAGNESIUM 1.9 mg/dL (1.8-2.4); POTASSIUM,K 5.2 mEq/L (3.5-5.0)
== END 2023-02-18 11:31 | disposition swing bed (61) | DRG 683 ==
LOC: CC.MS 13:07 → CC.FCMC 13:07 → CC.MS 14:34
PROVIDERS: ADMIT Nurse Practitioner; ATTEND Nurse Practitioner
DX: N17.9 Acute kidney failure, unspecified (principal); E87.20 Acidosis, unspecified; E87.5 Hyperkalemia; E86.0 Dehydration; E78.00 Pure hypercholesterolemia, unspecified; I10 Essential (primary) hypertension; Z95.0 Presence of cardiac pacemaker; Z86.73 Personal history of transient ischemic attack (TIA), and cerebral infarction without residual deficits; Z85.46 Personal history of malignant neoplasm of prostate; Z98.890 Other specified postprocedural states; Z88.1 Allergy status to other antibiotic agents; Z79.899 Other long term (current) drug therapy
CPT/HCPCS: 36415; 80048; 80053; 81001; 82800; 82947; 83735; 83880; 84484; 85025; 86140; 93005; 94640; 97110-GP; 97161-GP; A9270-GY; J0612; J1644; J1650; J1815-GY; J1940; J3490; J7030; J7060; J7613-GY

== ENCOUNTER 2023-02-18 11:37 | Inpatient (IN) | payer MEDICARE, BC ==
[2023-02-18] MEDS ORDERED: Glucagon,Human Recombinant 1 MG Vial IM PRN (12:11)
[2023-02-18] MEDS ORDERED: 50% Dextrose in Water 50 ML Syringe IVPUSH PRN (12:11)
[2023-02-18] MEDS ORDERED: Polyethylene Glycol 3350 Powder 17 GM Packet PO PRN (12:11)
[2023-02-18] MEDS ORDERED: Melatonin 3 MG Tab PO PRN (12:11)
[2023-02-18] MEDS ORDERED: Acetaminophen 325 MG Tab PO PRN (12:11)
[2023-02-18] MEDS ORDERED: Docusate Sodium 100 MG Cap PO PRN (12:11)
[2023-02-18] MEDS ORDERED: Heparin Sodium 5,000 Units/ML Vial SUBCUT SCH (16:00)
[2023-02-18] MEDS: Carvedilol 3.125 MG Tab PO SCH (16:40)
[2023-02-18] MEDS: atorvaSTATin 20 MG Tab PO SCH (19:21)
[2023-02-19] MEDS: Enoxaparin 30 MG/0.3 ML Syringe SUBCUT SCH (07:50)
[2023-02-19] MEDS: Tamsulosin 0.4 MG Cap.ER PO SCH (07:51)
[2023-02-19] MEDS: amLODIPine 10 MG Tab PO SCH (07:51)
[2023-02-19] MEDS: Folic Acid 1 MG Tab PO SCH (07:51)
[2023-02-19] MEDS: Furosemide 20 MG Tab PO SCH (07:51)
[2023-02-19] MEDS: Ferrous Sulfate 324 MG Tab.EC PO SCH (07:52)
[2023-02-19] MEDS: Carvedilol 3.125 MG Tab PO SCH ×2 (07:52→17:14)
[2023-02-19] MEDS: atorvaSTATin 20 MG Tab PO SCH (19:11)
[2023-02-20] MEDS: Enoxaparin 30 MG/0.3 ML Syringe SUBCUT SCH (07:42)
[2023-02-20] MEDS: Furosemide 20 MG Tab PO SCH (07:43)
[2023-02-20] MEDS: Carvedilol 3.125 MG Tab PO SCH ×2 (07:43→17:10)
[2023-02-20] MEDS: amLODIPine 10 MG Tab PO SCH (07:43)
[2023-02-20] MEDS: Ferrous Sulfate 324 MG Tab.EC PO SCH (07:44)
[2023-02-20] MEDS: Folic Acid 1 MG Tab PO SCH (07:44)
[2023-02-20] MEDS: Tamsulosin 0.4 MG Cap.ER PO SCH (07:44)
[2023-02-20] MEDS: atorvaSTATin 20 MG Tab PO SCH (19:34)
[2023-02-21] MEDS: Enoxaparin 30 MG/0.3 ML Syringe SUBCUT SCH (07:19)
[2023-02-21] MEDS: Carvedilol 3.125 MG Tab PO SCH ×2 (07:20→17:10)
[2023-02-21] MEDS: Ferrous Sulfate 324 MG Tab.EC PO SCH (07:20)
[2023-02-21] MEDS: amLODIPine 10 MG Tab PO SCH (07:20)
[2023-02-21] MEDS: Folic Acid 1 MG Tab PO SCH (07:20)
[2023-02-21] MEDS: Tamsulosin 0.4 MG Cap.ER PO SCH (07:20)
[2023-02-21] MEDS: Furosemide 20 MG Tab PO SCH (07:20)
[2023-02-21] MEDS: atorvaSTATin 20 MG Tab PO SCH (19:18)
[2023-02-22] MEDS: amLODIPine 10 MG Tab PO SCH (07:42)
[2023-02-22] MEDS: Tamsulosin 0.4 MG Cap.ER PO SCH (07:42)
[2023-02-22] MEDS: Ferrous Sulfate 324 MG Tab.EC PO SCH (07:42)
[2023-02-22 07:43] VITALS: BP 112/44; PULSE 60
[2023-02-22] MEDS: Carvedilol 3.125 MG Tab PO SCH (07:43)
[2023-02-22] MEDS: Furosemide 20 MG Tab PO SCH (07:43)
[2023-02-22] MEDS: Folic Acid 1 MG Tab PO SCH (07:43)
[2023-02-22] MEDS: Enoxaparin 30 MG/0.3 ML Syringe SUBCUT SCH (07:43)
== END 2023-02-22 14:11 | disposition home or self-care (01) | DRG 948 ==
LOC: UNDOADMIN 11:37 → CC.MS 11:37
PROVIDERS: ADMIT Nurse Practitioner; ATTEND Nurse Practitioner
DX: R53.1 Weakness (principal); N17.9 Acute kidney failure, unspecified; E87.5 Hyperkalemia; E86.0 Dehydration; Z79.899 Other long term (current) drug therapy
CPT/HCPCS: 97110-GP; 97161-GP; A9270-GY; J1644; J1650

== ENCOUNTER 2024-01-18 11:31 | Inpatient (IN) | payer MEDICARE, BC ==
[2024-01-18] MEDS ORDERED: Ondansetron 4 MG Tab.DIS PO PRN (16:28)
[2024-01-18] MEDS ORDERED: Polyethylene Glycol 3350 Powder 17 GM Packet PO PRN (16:28)
[2024-01-18] MEDS ORDERED: Docusate Sodium 100 MG Cap PO PRN (16:28)
[2024-01-18] MEDS ORDERED: Magnesium Oxide 400 MG Tab PO PRN (17:34)
[2024-01-18] MEDS: atorvaSTATin 20 MG Tab PO SCH (17:40)
[2024-01-18] MEDS: Carvedilol 3.125 MG Tab PO SCH (17:40)
[2024-01-18] MEDS: Baclofen 10 MG Tab PO SCH (20:17)
[2024-01-18] MEDS: Aspirin 81 MG Tab.EC PO SCH (20:17)
[2024-01-18] MEDS: Melatonin 3 MG Tab PO SCH (20:18)
[2024-01-18] MEDS: Acetaminophen/HYDROcodone 325-5 MG Tab PO PRN (20:25)
[2024-01-19] MEDS: Acetaminophen 325 MG Tab PO PRN (03:54)
[2024-01-19] MEDS: Pantoprazole 40 MG Tab.CR PO SCH (06:36)
[2024-01-19] MEDS: Sennosides 8.6 MG Tab PO SCH (07:53)
[2024-01-19] MEDS: Folic Acid 1 MG Tab PO SCH (07:54)
[2024-01-19] MEDS: Vitamin B Complex Cap PO SCH (07:54)
[2024-01-19] MEDS: Ascorbic Acid 500 MG Tab PO SCH (07:54)
[2024-01-19] MEDS: Furosemide 40 MG Tab PO SCH (07:54)
[2024-01-19] MEDS: Ferrous Sulfate 324 MG Tab.EC PO SCH (07:54)
[2024-01-19] MEDS: Cyanocobalamin (Vitamin B12) 1,000 MCG Tab PO SCH (07:54)
[2024-01-19] MEDS: Cholecalciferol (Vitamin D3) 25 MCG Tab PO SCH (07:54)
[2024-01-19] MEDS: Tamsulosin 0.4 MG Cap.ER PO SCH (07:54)
[2024-01-19] MEDS: Cranberry 500 MG Cap PO SCH (07:54)
[2024-01-19] MEDS ORDERED: TUMERIC 500 MG PO SCH (08:00)
[2024-01-20] MEDS: DULoxetine 20 MG Cap PO SCH ×2 (08:01→08:27)
[2024-01-20 08:04] LABS: BASOPHILS ABSOLUTE AUTO 0.02 10^3/uL (0.00-0.50); BASOPHILS PERCENT AUTO 0.4 % (0-1); EOSINOPHILS ABSOLUTE AUTO 0.21 10^3/uL (0.00-1.50); EOSINOPHILS PERCENT AUTO 3.8 % (0-6); HEMATOCRIT 28.2 % (42.0-52.0); HEMOGLOBIN 8.6 g/dL (14.0-18.0); IMMATURE GRAN ABSOLUTE AUTO 0.01 10^3/uL (0.00-0.49); IMMATURE GRAN PERCENT AUTO 0.2 % (0.0-4.9); MEAN CORPUSCULAR HEMOGLOBIN 30.8 pg (27.0-32.0); MEAN CORPUSCULAR HGB CONC 30.5 g/dL (32.0-36.0); MEAN CORPUSCULAR VOLUME 101.1 fL (83.0-97.0); MONOCYTES ABSOLUTE AUTO 0.55 10^3/uL (0.00-1.50); MONOCYTES PERCENT AUTO 9.9 % (0-10); NEUTROPHILS ABSOLUTE AUTO 3.77 x10^3/uL (1.80-8.00); NEUTROPHILS PERCENT AUTO 67.7 % (41-71); PLATELET COUNT,PLT 177 10^3/uL (150-400); RED BLOOD CELL COUNT 2.79 x10^6/uL (4.50-6.00); WHITE BLOOD CELL COUNT,WBC 5.6 10^3/uL (4.0-11.0)
[2024-01-20 08:37] LABS: CREATININE 1.8 mg/dL (0.7-1.3); EST CRCL DRUG DOSING (CG) 23.27 mL/min; MAGNESIUM 2.1 mg/dL (1.8-2.4); POTASSIUM,K 4.6 mEq/L (3.5-5.0)
[2024-01-23 07:53] LABS: BASOPHILS ABSOLUTE AUTO 0.03 10^3/uL (0.00-0.50); BASOPHILS PERCENT AUTO 0.4 % (0-1); EOSINOPHILS ABSOLUTE AUTO 0.23 10^3/uL (0.00-1.50); EOSINOPHILS PERCENT AUTO 3.4 % (0-6); HEMATOCRIT 28.9 % (42.0-52.0); HEMOGLOBIN 8.8 g/dL (14.0-18.0); IMMATURE GRAN ABSOLUTE AUTO 0.02 10^3/uL (0.00-0.49); IMMATURE GRAN PERCENT AUTO 0.3 % (0.0-4.9); LYMPHOCYTES ABSOLUTE AUTO 1.01 10^3/uL (0.60-5.00); MEAN CORPUSCULAR HEMOGLOBIN 30.8 pg (27.0-32.0); MEAN CORPUSCULAR HGB CONC 30.4 g/dL (32.0-36.0); MONOCYTES ABSOLUTE AUTO 0.47 10^3/uL (0.00-1.50); NEUTROPHILS ABSOLUTE AUTO 4.99 x10^3/uL (1.80-8.00); NEUTROPHILS PERCENT AUTO 73.9 % (41-71); PLATELET COUNT,PLT 202 10^3/uL (150-400); RED BLOOD CELL COUNT 2.86 x10^6/uL (4.50-6.00); WHITE BLOOD CELL COUNT,WBC 6.8 10^3/uL (4.0-11.0)
[2024-01-24] MEDS: Colchicine 0.6 MG Tab PO ONE ×2 (07:26→09:12)
[2024-01-25] MEDS: Loperamide 2 MG Cap PO PRN (01:57)
[2024-01-25] MEDS: Allopurinol 100 MG Tab PO SCH (07:50)
== END 2024-01-28 13:35 | disposition home or self-care (01) | DRG 561 ==
LOC: CC.MS 13:12 → UNDOADMIN 13:12 → CC.MS 16:28
PROVIDERS: ADMIT Nurse Practitioner; ATTEND Nurse Practitioner
DX: Z47.1 Aftercare following joint replacement surgery (principal); D64.9 Anemia, unspecified; N40.0 Benign prostatic hyperplasia without lower urinary tract symptoms; M19.90 Unspecified osteoarthritis, unspecified site; M10.9 Gout, unspecified; Z95.0 Presence of cardiac pacemaker; Z88.1 Allergy status to other antibiotic agents; Z88.8 Allergy status to other drugs, medicaments and biological substances; Z79.899 Other long term (current) drug therapy; Z79.82 Long term (current) use of aspirin; Z86.73 Personal history of transient ischemic attack (TIA), and cerebral infarction without residual deficits; Z98.890 Other specified postprocedural states; Z96.659 Presence of unspecified artificial knee joint
CPT/HCPCS: 36415; 80048; 83735; 84550; 85025; 94760; 97110-GP; 97161-GP; 97530-GP; A6213; A9270-GY

== ENCOUNTER 2024-06-27 11:48 | Inpatient (IN) | payer MEDICARE, BC ==
[2024-06-27] MEDS ORDERED: oxyCODONE 5 MG Tab PO PRN ×2 (14:02→14:29)
[2024-06-27] MEDS: Bisacodyl 10 MG Supp RECTAL ONE (15:58)
[2024-06-27] MEDS: atorvaSTATin 20 MG Tab PO SCH (17:36)
[2024-06-27] MEDS: Carvedilol 3.125 MG Tab PO SCH (17:36)
[2024-06-27] MEDS: Tamsulosin 0.4 MG Cap.ER PO SCH (19:44)
[2024-06-27] MEDS: Aspirin 81 MG Tab.EC PO SCH (19:45)
[2024-06-27] MEDS: Melatonin 3 MG Tab PO SCH (19:45)
[2024-06-27] MEDS: Sennosides/Docusate Sodium 50-8.6 MG Tab PO SCH (19:45)
[2024-06-28] MEDS: Acetaminophen 325 MG Tab PO PRN (01:29)
[2024-06-28] MEDS: Ascorbic Acid 500 MG Tab PO SCH (07:42)
[2024-06-28] MEDS: Polyethylene Glycol 3350 Powder 17 GM Packet PO SCH (07:42)
[2024-06-28] MEDS: Cranberry 500 MG Cap PO SCH (07:42)
[2024-06-28] MEDS: DULoxetine 20 MG Cap PO SCH (07:42)
[2024-06-28] MEDS: Allopurinol 100 MG Tab PO SCH (07:42)
[2024-06-28] MEDS: Vitamin B Complex Cap PO SCH (07:42)
[2024-06-28] MEDS: Cholecalciferol (Vitamin D3) 25 MCG Tab PO SCH (07:43)
[2024-06-28] MEDS: Folic Acid 1 MG Tab PO SCH (07:43)
[2024-06-28] MEDS: Furosemide 40 MG Tab PO SCH (07:43)
[2024-06-28] MEDS: Cyanocobalamin (Vitamin B12) 1,000 MCG Tab PO SCH (07:43)
[2024-06-28] MEDS ORDERED: Docusate Sodium 100 MG Cap PO SCH (08:00)
[2024-06-28] MEDS ORDERED: Magnesium Oxide 400 MG Tab PO PRN (08:27)
[2024-06-28] MEDS: FLAXSEED OIL 1000 MG PO SCH (16:49)
[2024-06-29 07:28] LABS: CALCIUM 8.6 mg/dL (8.4-10.1); CREATININE 2.2 mg/dL (0.7-1.3); EST CRCL DRUG DOSING (CG) 21.35 mL/min
[2024-06-29 07:37] LABS: BASOPHILS ABSOLUTE AUTO 0.04 10^3/uL (0.00-0.50); BASOPHILS PERCENT AUTO 0.8 % (0-1); EOSINOPHILS ABSOLUTE AUTO 0.22 10^3/uL (0.00-1.50); EOSINOPHILS PERCENT AUTO 4.5 % (0-6); HEMATOCRIT 23.1 % (42.0-52.0); LYMPHOCYTES ABSOLUTE AUTO 0.89 10^3/uL (0.60-5.00); LYMPHOCYTES PERCENT AUTO 18.1 % (24-44); MEAN CORPUSCULAR HEMOGLOBIN 32.1 pg (27.0-32.0); MEAN CORPUSCULAR HGB CONC 31.2 g/dL (32.0-36.0); MEAN CORPUSCULAR VOLUME 103.1 fL (83.0-97.0); MONOCYTES ABSOLUTE AUTO 0.63 10^3/uL (0.00-1.50); MONOCYTES PERCENT AUTO 12.8 % (0-10); NEUTROPHILS ABSOLUTE AUTO 3.15 x10^3/uL (1.80-8.00); NEUTROPHILS PERCENT AUTO 63.8 % (41-71); PLATELET COUNT,PLT 132 10^3/uL (150-400); RED BLOOD CELL COUNT 2.24 x10^6/uL (4.50-6.00); WHITE BLOOD CELL COUNT,WBC 4.9 10^3/uL (4.0-11.0)
[2024-06-29 07:41] LABS: HEMOGLOBIN 7.2 g/dL (14.0-18.0)
[2024-06-29] MEDS ORDERED: Acetaminophen/HYDROcodone 325-5 MG Tab PO PRN (11:27)
[2024-06-29] MEDS: Acetaminophen/HYDROcodone 325-5 MG Tab PO PRN ×2 (13:02→21:59)
[2024-06-30 07:37] LABS: HEMATOCRIT 25.1 % (42.0-52.0); HEMOGLOBIN 7.9 g/dL (14.0-18.0)
[2024-06-30] MEDS: TUMERIC 1000 MG PO SCH (07:40)
[2024-07-01] MEDS: [UNRECOGNIZED DRUG - OTHER] PO SCH (08:05)
[2024-07-01] MEDS: BIOTIN PO SCH (08:05)
[2024-07-03 08:08] LABS: HEMATOCRIT 24.5 % (42.0-52.0); HEMOGLOBIN 7.6 g/dL (14.0-18.0)
[2024-07-07 07:28] LABS: HEMATOCRIT 24.1 % (42.0-52.0); HEMOGLOBIN 7.5 g/dL (14.0-18.0)
[2024-07-21] MEDS ORDERED: Aspirin 81 MG Tab.EC PO SCH (08:00)
== END 2024-07-08 13:15 | disposition home or self-care (01) | DRG 561 ==
LOC: CC.MS 11:50
PROVIDERS: ADMIT Physician Assistant Medical; ATTEND Physician Assistant Medical
DX: Z47.1 Aftercare following joint replacement surgery (principal); N40.0 Benign prostatic hyperplasia without lower urinary tract symptoms; K59.00 Constipation, unspecified; Z96.659 Presence of unspecified artificial knee joint; Z96.642 Presence of left artificial hip joint; Z88.1 Allergy status to other antibiotic agents; Z88.8 Allergy status to other drugs, medicaments and biological substances; Z79.899 Other long term (current) drug therapy; Z79.82 Long term (current) use of aspirin; Z95.0 Presence of cardiac pacemaker; Z86.73 Personal history of transient ischemic attack (TIA), and cerebral infarction without residual deficits; Z98.890 Other specified postprocedural states; Z85.46 Personal history of malignant neoplasm of prostate
CPT/HCPCS: 36415; 80048; 85014; 85018; 85025; 97110-GP; 97161-GP; 97530-GP; 99306; 99307; 99316; A6213; A9270-GY

== ENCOUNTER 2024-10-10 14:54 | Emergency (ER) | payer MEDICARE, BC ==
[2024-10-10 15:42] LABS: BASOPHILS ABSOLUTE AUTO 0.05 10^3/uL (0.00-0.50); BASOPHILS PERCENT AUTO 0.7 % (0-1); EOSINOPHILS ABSOLUTE AUTO 0.16 10^3/uL (0.00-1.50); EOSINOPHILS PERCENT AUTO 2.1 % (0-6); IMMATURE GRAN ABSOLUTE AUTO 0.01 10^3/uL (0.00-0.49); IMMATURE GRAN PERCENT AUTO 0.1 % (0.0-4.9); LYMPHOCYTES ABSOLUTE AUTO 1.26 10^3/uL (0.60-5.00); LYMPHOCYTES PERCENT AUTO 16.5 % (24-44); MONOCYTES ABSOLUTE AUTO 0.57 10^3/uL (0.00-1.50); MONOCYTES PERCENT AUTO 7.5 % (0-10); NEUTROPHILS ABSOLUTE AUTO 5.60 x10^3/uL (1.80-8.00); NEUTROPHILS PERCENT AUTO 73.1 % (41-71); PLATELET COUNT,PLT 131 10^3/uL (150-400); RED BLOOD CELL COUNT 3.08 x10^6/uL (4.50-6.00); WHITE BLOOD CELL COUNT,WBC 7.7 10^3/uL (4.0-11.0)
[2024-10-10 15:56] LABS: SEDIMENTATION RATE MANUAL 44 mm/hr (0-15)
[2024-10-10 15:59] LABS: ALANINE AMINOTRANSFERASE,ALT 18.0 U/L (12-78); ASPARTATE AMNIOTRANSFERASE,AST 14.0 U/L (15-37); BILIRUBIN TOTAL 0.4 mg/dL (0.0-1.0); BLOOD UREA NITROGEN,BUN 35.0 mg/dL (7-18); CARBON DIOXIDE,CO2 32.0 mmol/L (21-32); CHLORIDE,CL 106.0 mEq/L (98-106); CREATININE 2.1 mg/dL (0.7-1.3); EST CRCL DRUG DOSING (CG) 22.36 mL/min; GLUCOSE RANDOM 111.0 mg/dL (75-99); POTASSIUM,K 4.4 mEq/L (3.5-5.0); PROTEIN TOTAL,TP 6.8 g/dL (6.4-8.2); SODIUM,NA 146.0 mEq/L (136-145)
[2024-10-10 16:03] LABS: ESTIMATED GFR 30.0 mL/min (>=60)
== END 2024-10-10 16:32 | disposition home or self-care (01) ==
LOC: CC.ED 14:54
DX: M25.522 Pain in left elbow (principal); R70.0 Elevated erythrocyte sedimentation rate; Z88.1 Allergy status to other antibiotic agents; Z88.8 Allergy status to other drugs, medicaments and biological substances; Z79.899 Other long term (current) drug therapy; Z79.82 Long term (current) use of aspirin; Z95.0 Presence of cardiac pacemaker; Z86.73 Personal history of transient ischemic attack (TIA), and cerebral infarction without residual deficits
CPT/HCPCS: 36415; 73080-LT; 80053; 84550; 85025; 85651; 86140; 99283; 99284

== ENCOUNTER 2024-12-01 15:43 | Inpatient (IN) | payer MEDICARE, BC ==
[2024-12-01] MEDS ORDERED: Ondansetron 4 MG/2 ML SDV IV PRN (15:52)
[2024-12-01] MEDS ORDERED: Acetaminophen/HYDROcodone 325-5 MG Tab PO PRN (21:04)
[2024-12-02] MEDS: Cholecalciferol (Vitamin D3) 25 MCG Tab PO SCH (07:33)
[2024-12-02] MEDS: Cyanocobalamin (Vitamin B12) 1,000 MCG Tab PO SCH (07:33)
[2024-12-02] MEDS: Sennosides/Docusate Sodium 50-8.6 MG Tab PO SCH (07:33)
[2024-12-02] MEDS ORDERED: MUPIROCIN CALCIUM TP SCH (08:00)
[2024-12-02] MEDS ORDERED: MUPIROCIN TOP PRN (08:00)
[2024-12-02 08:24] LABS: BASOPHILS ABSOLUTE AUTO 0.03 10^3/uL (0.00-0.50); BASOPHILS PERCENT AUTO 0.5 % (0-1); EOSINOPHILS ABSOLUTE AUTO 0.17 10^3/uL (0.00-1.50); EOSINOPHILS PERCENT AUTO 3.1 % (0-6); IMMATURE GRAN ABSOLUTE AUTO 0.01 10^3/uL (0.00-0.49); IMMATURE GRAN PERCENT AUTO 0.2 % (0.0-4.9); LYMPHOCYTES ABSOLUTE AUTO 0.93 10^3/uL (0.60-5.00); LYMPHOCYTES PERCENT AUTO 16.8 % (24-44); MONOCYTES ABSOLUTE AUTO 0.62 10^3/uL (0.00-1.50); MONOCYTES PERCENT AUTO 11.2 % (0-10); NEUTROPHILS ABSOLUTE AUTO 3.77 x10^3/uL (1.80-8.00); NEUTROPHILS PERCENT AUTO 68.2 % (41-71); PLATELET COUNT,PLT 150 10^3/uL (150-400); RED BLOOD CELL COUNT 3.02 x10^6/uL (4.50-6.00); WHITE BLOOD CELL COUNT,WBC 5.5 10^3/uL (4.0-11.0)
[2024-12-02 08:44] LABS: BLOOD UREA NITROGEN,BUN 41.0 mg/dL (7-18); CARBON DIOXIDE,CO2 29.0 mmol/L (21-32); CHLORIDE,CL 105.0 mEq/L (98-106); CREATININE 2.1 mg/dL (0.7-1.3); EST CRCL DRUG DOSING (CG) 20.75 mL/min; GLUCOSE RANDOM 98.0 mg/dL (75-99); POTASSIUM,K 4.2 mEq/L (3.5-5.0); SODIUM,NA 142.0 mEq/L (136-145)
[2024-12-02 09:03] LABS: ESTIMATED GFR 30.0 mL/min (>=60)
[2024-12-02] MEDS: Ondansetron 4 MG Tab.DIS PO PRN (15:11)
[2024-12-03 07:51] LABS: BASOPHILS ABSOLUTE AUTO 0.04 10^3/uL (0.00-0.50); BASOPHILS PERCENT AUTO 0.6 % (0-1); EOSINOPHILS ABSOLUTE AUTO 0.04 10^3/uL (0.00-1.50); EOSINOPHILS PERCENT AUTO 0.6 % (0-6); IMMATURE GRAN ABSOLUTE AUTO 0.01 10^3/uL (0.00-0.49); IMMATURE GRAN PERCENT AUTO 0.1 % (0.0-4.9); LYMPHOCYTES ABSOLUTE AUTO 1.28 10^3/uL (0.60-5.00); LYMPHOCYTES PERCENT AUTO 18.2 % (24-44); MONOCYTES ABSOLUTE AUTO 0.51 10^3/uL (0.00-1.50); MONOCYTES PERCENT AUTO 7.2 % (0-10); NEUTROPHILS ABSOLUTE AUTO 5.17 x10^3/uL (1.80-8.00); NEUTROPHILS PERCENT AUTO 73.3 % (41-71); PLATELET COUNT,PLT 149 10^3/uL (150-400); RED BLOOD CELL COUNT 3.01 x10^6/uL (4.50-6.00); WHITE BLOOD CELL COUNT,WBC 7.1 10^3/uL (4.0-11.0)
[2024-12-03 07:57] LABS: BLOOD UREA NITROGEN,BUN 41.0 mg/dL (7-18); CARBON DIOXIDE,CO2 28.0 mmol/L (21-32); CHLORIDE,CL 106.0 mEq/L (98-106); EST CRCL DRUG DOSING (CG) 16.76 mL/min; GLUCOSE RANDOM 111.0 mg/dL (75-99); POTASSIUM,K 4.3 mEq/L (3.5-5.0); SODIUM,NA 142.0 mEq/L (136-145)
[2024-12-03 07:59] LABS: CREATININE 2.6 mg/dL (0.7-1.3); ESTIMATED GFR 23.0 mL/min (>=60)
[2024-12-04 07:34] LABS: BASOPHILS ABSOLUTE AUTO 0.05 10^3/uL (0.00-0.50); BASOPHILS PERCENT AUTO 0.9 % (0-1); EOSINOPHILS ABSOLUTE AUTO 0.20 10^3/uL (0.00-1.50); EOSINOPHILS PERCENT AUTO 3.5 % (0-6); IMMATURE GRAN ABSOLUTE AUTO 0.02 10^3/uL (0.00-0.49); IMMATURE GRAN PERCENT AUTO 0.4 % (0.0-4.9); LYMPHOCYTES ABSOLUTE AUTO 1.23 10^3/uL (0.60-5.00); LYMPHOCYTES PERCENT AUTO 21.7 % (24-44); MONOCYTES ABSOLUTE AUTO 0.44 10^3/uL (0.00-1.50); MONOCYTES PERCENT AUTO 7.7 % (0-10); NEUTROPHILS ABSOLUTE AUTO 3.74 x10^3/uL (1.80-8.00); NEUTROPHILS PERCENT AUTO 65.8 % (41-71); PLATELET COUNT,PLT 143 10^3/uL (150-400); RED BLOOD CELL COUNT 2.94 x10^6/uL (4.50-6.00); WHITE BLOOD CELL COUNT,WBC 5.7 10^3/uL (4.0-11.0)
[2024-12-04 07:54] LABS: BLOOD UREA NITROGEN,BUN 38.0 mg/dL (7-18); CARBON DIOXIDE,CO2 27.0 mmol/L (21-32); CHLORIDE,CL 107.0 mEq/L (98-106); CREATININE 2.2 mg/dL (0.7-1.3); EST CRCL DRUG DOSING (CG) 19.81 mL/min; GLUCOSE RANDOM 98.0 mg/dL (75-99); POTASSIUM,K 4.6 mEq/L (3.5-5.0); SODIUM,NA 141.0 mEq/L (136-145)
[2024-12-04 08:15] LABS: ESTIMATED GFR 28.0 mL/min (>=60)
[2024-12-04 14:37] VITALS: BP 132/54; PULSE 68
== END 2024-12-04 13:45 | disposition home or self-care (01) | DRG 379 ==
LOC: CC.MS 15:43 → UNDOADMOB 15:43 → CC.MS 15:53 → OBSVTOIN 15:53
PROVIDERS: ADMIT Nurse Practitioner; ATTEND Nurse Practitioner
DX: K92.1 Melena (principal); K92.2 Gastrointestinal hemorrhage, unspecified; N40.0 Benign prostatic hyperplasia without lower urinary tract symptoms; M19.90 Unspecified osteoarthritis, unspecified site; Z96.659 Presence of unspecified artificial knee joint; Z96.649 Presence of unspecified artificial hip joint; Z88.1 Allergy status to other antibiotic agents; Z88.8 Allergy status to other drugs, medicaments and biological substances; Z79.899 Other long term (current) drug therapy; Z79.82 Long term (current) use of aspirin; Z86.73 Personal history of transient ischemic attack (TIA), and cerebral infarction without residual deficits; Z95.0 Presence of cardiac pacemaker; Z98.890 Other specified postprocedural states
CPT/HCPCS: 36415; 80048; 83735; 85025; 96374; 96376; 97161-GP; A9270-GY; G0378; J2470; J7040; J7512

== ENCOUNTER 2024-12-09 09:40 | Emergency (ER) | payer MEDICARE, BC ==
[2024-12-09 10:04] LABS: BASOPHILS ABSOLUTE AUTO 0.02 10^3/uL (0.00-0.50); BASOPHILS PERCENT AUTO 0.4 % (0-1); EOSINOPHILS ABSOLUTE AUTO 0.17 10^3/uL (0.00-1.50); EOSINOPHILS PERCENT AUTO 3.1 % (0-6); IMMATURE GRAN ABSOLUTE AUTO 0.00 10^3/uL (0.00-0.49); IMMATURE GRAN PERCENT AUTO 0.0 % (0.0-4.9); LYMPHOCYTES ABSOLUTE AUTO 0.90 10^3/uL (0.60-5.00); LYMPHOCYTES PERCENT AUTO 16.4 % (24-44); MONOCYTES ABSOLUTE AUTO 0.41 10^3/uL (0.00-1.50); MONOCYTES PERCENT AUTO 7.5 % (0-10); NEUTROPHILS ABSOLUTE AUTO 3.99 x10^3/uL (1.80-8.00); NEUTROPHILS PERCENT AUTO 72.6 % (41-71); PLATELET COUNT,PLT 143 10^3/uL (150-400); RED BLOOD CELL COUNT 3.12 x10^6/uL (4.50-6.00); WHITE BLOOD CELL COUNT,WBC 5.5 10^3/uL (4.0-11.0)
[2024-12-09 10:17] LABS: ALANINE AMINOTRANSFERASE,ALT 26 U/L (12-78); ASPARTATE AMNIOTRANSFERASE,AST 19 U/L (15-37); BILIRUBIN TOTAL 0.4 mg/dL (0.0-1.0); BLOOD UREA NITROGEN,BUN 32 mg/dL (7-18); CARBON DIOXIDE,CO2 28 mmol/L (21-32); CHLORIDE,CL 106 mEq/L (98-106); CREATININE 2.1 mg/dL (0.7-1.3); ESTIMATED GFR 30 mL/min (>=60); GLUCOSE RANDOM 162 mg/dL (75-99); POTASSIUM,K 3.9 mEq/L (3.5-5.0); PROTEIN TOTAL,TP 7.0 g/dL (6.4-8.2); SODIUM,NA 144 mEq/L (136-145)
== END 2024-12-09 11:04 | disposition home or self-care (01) ==
LOC: CC.ED 09:40
DX: M25.561 Pain in right knee (principal); M25.551 Pain in right hip; G89.29 Other chronic pain; R29.898 Other symptoms and signs involving the musculoskeletal system; Z88.1 Allergy status to other antibiotic agents; Z88.8 Allergy status to other drugs, medicaments and biological substances; Z79.899 Other long term (current) drug therapy; Z95.0 Presence of cardiac pacemaker; Z86.73 Personal history of transient ischemic attack (TIA), and cerebral infarction without residual deficits
CPT/HCPCS: 36415; 73562-RT; 80053; 85025; 86140; 99285